=== PATIENT | female | born 1950 | race Caucasian/White ===

== ENCOUNTER 2017-01-12 13:15 | Inpatient (IN) ==
--- NOTE | 2017-01-12 13:35 | Emergency Department Note ---
Disposition Clinical Impression: Pleural effusion Disposition: Admitted As Inpatient General Adult HPI - General Chief complaint: ED Shortness of Breath/Dyspnea Stated complaint: JOSEPH, from [facility] Time Seen by Provider: 01/12/17 13:30 Source: patient, family Limitations: no limitations - History of Present Illness Pain Scale: 0 - Related Data Home Medications Medication Instructions Recorded Confirmed Albuterol Neb [Proventil Neb] 2.5 mg IH TID PRN 01/12/17 01/12/17 Atorvastatin Calcium [Lipitor] 80 mg PO HS 01/12/17 01/12/17 Cetirizine HCl [Zyrtec] 10 mg PO DAILY 01/12/17 01/12/17 Cholecalciferol (D-3) [Vitamin D] 2,000 unit PO DAILY 01/12/17 01/12/17 Gabapentin [Neurontin] 900 mg PO TID 01/12/17 01/12/17 Insulin ASPART [Novolog Flexpen] 7 - 10 unit SQ TIDWM 01/12/17 01/12/17 Insulin Glargine,Hum.rec.anlog 20 unit SQ HS 01/12/17 01/12/17 [Lantus Solostar] Metoprolol Tartrate [Lopressor] 50 mg PO BID 01/12/17 01/12/17 Omeprazole [PriLOSEC] 40 mg PO DAILY 01/12/17 01/12/17 Valsartan [Diovan] 80 mg PO DAILY 01/12/17 01/12/17 Allergies Allergy/AdvReac Type Severity Reaction Status Date / Time codeine Allergy Swelling Verified 01/12/17 15:33 of Lip/Tongue/Throat Sulfa (Sulfonamide Allergy Swelling Verified 01/12/17 11:42 Antibiotics) of Lip/Tongue/Throat metformin AdvReac Diarrhea Verified 01/12/17 11:42 Past Medical History - Past Medical History Medical history: Reports: diabetes, hyperlipidemia, hypertension, other - Social History Smoking Status: Never smoker Smokeless Tobacco Status: No Alcohol use: Reports: none Drug use: Reports: none Physical Exam - General Limitations: no limitations General appearance: alert Course Vital Signs Temperature 97.8 F 01/12/17 13:26 Pulse Rate 114 01/12/17 13:26 Respiratory Rate 20 01/12/17 13:26 Blood Pressure 158/82 01/12/17 13:26 O2 Sat by Pulse Oximetry 95 01/12/17 13:26 Temperature 98.6 F 01/12/17 16:32 Pulse Rate 94 01/12/17 16:32 Respiratory Rate 16 01/12/17 16:32 Blood Pressure 146/76 01/12/17 16:32 O2 Sat by Pulse Oximetry 95 01/12/17 16:32 Medical Decision Making - Lab Data Result diagrams: 01/12/17 13:47 01/12/17 13:47 Lab Results 01/12/17 01/12/17 01/12/17 Range/Units 13:47 13:47 13:47 WBC 4.3 (4.3-11.1) K/mcL RBC 4.73 (3.82-4.97) M/mcL Hgb 13.2 (11.5-15.4) g/dL Hct 40.3 (35.3-44.9) % MCV 85.2 (83.0-100.0) fL MCH 27.9 L (28.0-33.3) pg MCHC 32.8 (31.6-35.5) g/dL RDW 15.3 H (11.5-14.5) % Plt Count 54 L (140-400) K/mcL MPV 9.7 (9.4-12.4) fL Immature Gran % 0.0 (0-4) % Seg Neutrophils % 60.4 % Lymphocytes % 23.1 % Monocytes % 8.0 % Eosinophils % 7.8 % Basophils % 0.7 % Neutrophils # 2.6 (1.6-8.9) K/mcL Lymphocytes # 1.0 (0.6-4.6) K/mcL Monocytes # 0.3 (0.0-1.3) K/mcL Eosinophils # 0.3 (0.0-0.6) K/mcL Basophils # 0.0 (0.0-0.2) K/mcL Platelet Estimate Decreased L (Normal) Immature Plt Fraction 5.4 (1.1-6.1) % PT 15.1 H (9.4-12.1) Seconds INR 1.4 APTT 34.2 (26.0-36.0) Seconds Sodium 135 L (136-145) mEq/L Potassium 3.6 (3.5-4.5) mEq/L Chloride 105 (98-109) mEq/L Carbon Dioxide 20 (19-29) mEq/L BUN 7 (7-20) mg/dL Creatinine 0.92 (0.57-1.11) mg/dL Est GFR ( Amer) > 60 (> 60) Est GFR (Non-Af Amer) > 60 (> 60) BUN/Creatinine Ratio 8 (6-26) Glucose 161 H (70-99) mg/dL POC Glucose (58-89) Calculated Osmolality 281 (280-300) Calcium 9.1 (8.6-10.8) mg/dL Total Bilirubin 1.7 H (0.2-1.2) mg/dL AST 35 H (5-34) Units/L ALT 18 (0-55) Units/L Alkaline Phosphatase 78 (38-126) Units/L Troponin I (0-0.03) ng/mL Serum Total Protein 7.3 (6.0-8.3) g/dL Albumin 3.8 (3.5-5.0) g/dL Globulin 3.5 (2.4-3.5) g/dL Albumin/Globulin Ratio 1.1 (1.1-2.2) 01/12/17 01/12/17 Range/Units 13:47 16:38 WBC (4.3-11.1) K/mcL RBC (3.82-4.97) M/mcL Hgb (11.5-15.4) g/dL Hct (35.3-44.9) % MCV (83.0-100.0) fL MCH (28.0-33.3) pg MCHC (31.6-35.5) g/dL RDW (11.5-14.5) % Plt Count (140-400) K/mcL MPV (9.4-12.4) fL Immature Gran % (0-4) % Seg Neutrophils % % Lymphocytes % % Monocytes % % Eosinophils % % Basophils % % Neutrophils # (1.6-8.9) K/mcL Lymphocytes # (0.6-4.6) K/mcL Monocytes # (0.0-1.3) K/mcL Eosinophils # (0.0-0.6) K/mcL Basophils # (0.0-0.2) K/mcL Platelet Estimate (Normal) Immature Plt Fraction (1.1-6.1) % PT (9.4-12.1) Seconds INR APTT (26.0-36.0) Seconds Sodium (136-145) mEq/L Potassium (3.5-4.5) mEq/L Chloride (98-109) mEq/L Carbon Dioxide (19-29) mEq/L BUN (7-20) mg/dL Creatinine (0.57-1.11) mg/dL Est GFR ( Amer) (> 60) Est GFR (Non-Af Amer) (> 60) BUN/Creatinine Ratio (6-26) Glucose (70-99) mg/dL POC Glucose 127 H (58-89) Calculated Osmolality (280-300) Calcium (8.6-10.8) mg/dL Total Bilirubin (0.2-1.2) mg/dL AST (5-34) Units/L ALT (0-55) Units/L Alkaline Phosphatase (38-126) Units/L Troponin I 0.01 (0-0.03) ng/mL Serum Total Protein (6.0-8.3) g/dL Albumin (3.5-5.0) g/dL Globulin (2.4-3.5) g/dL Albumin/Globulin Ratio (1.1-2.2) Attestation Statement - Attestation Attestation: I examined this patient and my medical decision-making was reviewed with the [employer]/PA/Advanced Practice Nurse/Resident Physician. I agree with the documented findings, disposition and treatment plan as described except to the extent set forth below. [id number] time provided Patient transferred from the urgent care for assessment of dyspnea and right- sided pleural effusion. Patient underwent an open procedure to relieve and drain a loculated left-sided pleural effusion in 2013. The patient is dyspneic on exam. I did review the imaging of her chest which was ordered earlier at the urgent care.
--- NOTE | 2017-01-12 13:43 | Emergency Department Note ---
Disposition Clinical Impression: Pleural effusion Disposition: Admitted As Inpatient General Adult HPI - General Chief complaint: ED Shortness of Breath/Dyspnea Stated complaint: JOSEPH, from UC Time Seen by Provider: 01/12/17 13:30 Source: patient, family Limitations: no limitations Nursing Notes Reviewed: Yes Vital Signs Reviewed: Yes - History of Present Illness HPI Narrative: Mrs. Quigley, a 66yo female, presents from urgent care by POV with CC: cough, dyspnea. Onset 5 days ago. Dyspnea worse with laying prone or on her side. This was predisposed by bronchitis in Aug and Oct; received abx and steroids each time. Her symptoms have occurred once previously also preceeded with bronchitis with subsequent pleural effusion on the left requiring open drainage and "scraping." PMH: HTN, HLD, DM insulin dependent. 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 Admits: Cough, dyspnea Eyes: Fever, chills, chest pain, abdominal pain, nausea, vomiting, changes in bowel or bladder. Pain Scale: 0 - Related Data Allergies Allergy/AdvReac Type Severity Reaction Status Date / Time codeine Allergy Rash Verified 01/12/17 11:42 Sulfa (Sulfonamide Allergy Swelling Verified 01/12/17 11:42 Antibiotics) of Lip/Tongue/Throat metformin AdvReac Diarrhea Verified 01/12/17 11:42 All systems ED: reviewed and negative except as stated. (as per HPI) Past Medical History - Past Medical History Medical history: Reports: diabetes, hyperlipidemia, hypertension, other - Social History Smoking Status: Never smoker Smokeless Tobacco Status: No Alcohol use: Reports: none Drug use: Reports: none Physical Exam General: Patient is alert, oriented, and in no acute distress. HEENT: Mild left-sided nasolabial flattening which is chronic. Head is normocephalic and atraumatic. The midline. Cardiovascular: Heart regular rate and rhythm without clicks, rubs, gallops, or murmurs. No JVD. PMI nondisplaced. Respiratory: Symmetric chest rise with poor respiratory effort. Diminished breath sounds in the right upper lobe with absent breath sounds in the right lower lobe. Abdomen: Obese. Bowel sounds present normoactive x-4 quadrants. Abdomen is soft, nondistended, and nontender. No organomegaly noted. Musculoskeletal: Permanent disability patients left upper extremity with no strength in her left shoulder and permanent flexion of her left elbow. Psych: Patient's affect is appropriate for situation. - General Limitations: no limitations General appearance: alert Course Course Narrative: Chest x-ray from urgent care reviewed showing right sided pleural effusion consuming approximately 50% of the right thorax. Will CT chest and reevaluate. Patient remained stable and comfortable with oxygenation in the mid 90s on room air. Vital Signs Temperature 97.8 F 01/12/17 13:26 Pulse Rate 114 01/12/17 13:26 Respiratory Rate 20 01/12/17 13:26 Blood Pressure 158/82 01/12/17 13:26 O2 Sat by Pulse Oximetry 95 01/12/17 13:26 Temperature 97.8 F 01/12/17 13:26 Pulse Rate 112 01/12/17 14:00 Respiratory Rate 16 01/12/17 14:00 Blood Pressure 167/98 01/12/17 14:00 O2 Sat by Pulse Oximetry 95 01/12/17 14:00 Oxygen Delivery Oxygen Delivery Room Air Medical Decision Making - Lab Data Result diagrams: 01/12/17 13:47 01/12/17 13:47 Lab Results 01/12/17 01/12/17 01/12/17 Range/Units 13:47 13:47 13:47 WBC 4.3 (4.3-11.1) K/mcL RBC 4.73 (3.82-4.97) M/mcL Hgb 13.2 (11.5-15.4) g/dL Hct 40.3 (35.3-44.9) % MCV 85.2 (83.0-100.0) fL MCH 27.9 L (28.0-33.3) pg MCHC 32.8 (31.6-35.5) g/dL RDW 15.3 H (11.5-14.5) % Plt Count 54 L (140-400) K/mcL MPV 9.7 (9.4-12.4) fL Immature Gran % 0.0 (0-4) % Seg Neutrophils % 60.4 % Lymphocytes % 23.1 % Monocytes % 8.0 % Eosinophils % 7.8 % Basophils % 0.7 % Neutrophils # 2.6 (1.6-8.9) K/mcL Lymphocytes # 1.0 (0.6-4.6) K/mcL Monocytes # 0.3 (0.0-1.3) K/mcL Eosinophils # 0.3 (0.0-0.6) K/mcL Basophils # 0.0 (0.0-0.2) K/mcL Platelet Estimate Decreased L (Normal) Immature Plt Fraction 5.4 (1.1-6.1) % PT 15.1 H (9.4-12.1) Seconds INR 1.4 APTT 34.2 (26.0-36.0) Seconds Sodium 135 L (136-145) mEq/L Potassium 3.6 (3.5-4.5) mEq/L Chloride 105 (98-109) mEq/L Carbon Dioxide 20 (19-29) mEq/L BUN 7 (7-20) mg/dL Creatinine 0.92 (0.57-1.11) mg/dL Est GFR ( Amer) > 60 (> 60) Est GFR (Non-Af Amer) > 60 (> 60) BUN/Creatinine Ratio 8 (6-26) Glucose 161 H (70-99) mg/dL Calculated Osmolality 281 (280-300) Calcium 9.1 (8.6-10.8) mg/dL Total Bilirubin 1.7 H (0.2-1.2) mg/dL AST 35 H (5-34) Units/L ALT 18 (0-55) Units/L Alkaline Phosphatase 78 (38-126) Units/L Troponin I (0-0.03) ng/mL Serum Total Protein 7.3 (6.0-8.3) g/dL Albumin 3.8 (3.5-5.0) g/dL Globulin 3.5 (2.4-3.5) g/dL Albumin/Globulin Ratio 1.1 (1.1-2.2) 01/12/17 Range/Units 13:47 WBC (4.3-11.1) K/mcL RBC (3.82-4.97) M/mcL Hgb (11.5-15.4) g/dL Hct (35.3-44.9) % MCV (83.0-100.0) fL MCH (28.0-33.3) pg MCHC (31.6-35.5) g/dL RDW (11.5-14.5) % Plt Count (140-400) K/mcL MPV (9.4-12.4) fL Immature Gran % (0-4) % Seg Neutrophils % % Lymphocytes % % Monocytes % % Eosinophils % % Basophils % % Neutrophils # (1.6-8.9) K/mcL Lymphocytes # (0.6-4.6) K/mcL Monocytes # (0.0-1.3) K/mcL Eosinophils # (0.0-0.6) K/mcL Basophils # (0.0-0.2) K/mcL Platelet Estimate (Normal) Immature Plt Fraction (1.1-6.1) % PT (9.4-12.1) Seconds INR APTT (26.0-36.0) Seconds Sodium (136-145) mEq/L Potassium (3.5-4.5) mEq/L Chloride (98-109) mEq/L Carbon Dioxide (19-29) mEq/L BUN (7-20) mg/dL Creatinine (0.57-1.11) mg/dL Est GFR ( Amer) (> 60) Est GFR (Non-Af Amer) (> 60) BUN/Creatinine Ratio (6-26) Glucose (70-99) mg/dL Calculated Osmolality (280-300) Calcium (8.6-10.8) mg/dL Total Bilirubin (0.2-1.2) mg/dL AST (5-34) Units/L ALT (0-55) Units/L Alkaline Phosphatase (38-126) Units/L Troponin I 0.01 (0-0.03) ng/mL Serum Total Protein (6.0-8.3) g/dL Albumin (3.5-5.0) g/dL Globulin (2.4-3.5) g/dL Albumin/Globulin Ratio (1.1-2.2) - EKG Data EKG #1 EKG attestation: Yes I reviewed and interpreted this EKG. EKG results narrative: EKG dated 01/12/17 shows sinus tachycardia with a rate of 120. Normal intervals. Normal axis. His EKG is concerning for S Pham 1, Q-wave in lead 3, T-wave inversion in lead 3. Acute ST-T changes. Compared to previous dated 01/15/2015 is also showing S-wave in lead 1, Q-wave in lead 3, and T-wave in lead 3. No acute ischemic changes or comparison.
[2017-01-12 13:55] LABS: Basophils % 0.7 %; Eosinophils # 0.3 K/mcL (0.0-0.6); Eosinophils % 7.8 %; Hematocrit 40.3 % (35.3-44.9); Hemoglobin 13.2 g/dL (11.5-15.4); Immature Platelets 5.4 % (1.1-6.1); Lymphocytes % 23.1 %; Mean Corpuscular HGB Conc 32.8 g/dL (31.6-35.5); Mean Corpuscular Hemoglobin 27.9 pg (28.0-33.3); Mean Corpuscular Volume 85.2 fL (83.0-100.0); Mean Platelet Volume 9.7 fL (9.4-12.4); Monocytes # 0.3 K/mcL (0.0-1.3); Neutrophils # 2.6 K/mcL (1.6-8.9); Platelet Count 54 K/mcL (140-400); Red Blood Count 4.73 M/mcL (3.82-4.97); Red Cell Distribution Width 15.3 % (11.5-14.5); Segmented Neutrophils % 60.4 %
[2017-01-12 14:01] LABS: INR 1.4; Prothrombin Time 15.1 Seconds (9.4-12.1)
[2017-01-12 14:04] LABS: Activated Partial Thrombo Time 34.2 Seconds (26.0-36.0)
[2017-01-12 14:08] LABS: Alanine Aminotransferase 18 Units/L (0-55); Albumin 3.8 g/dL (3.5-5.0); Albumin/Globulin Ratio 1.1 (1.1-2.2); Alkaline Phosphatase 78 Units/L (38-126); Aspartate Amino Transferase 35 Units/L (5-34); BUN/Creatinine Ratio 8 (6-26); Bilirubin,Total 1.7 mg/dL (0.2-1.2); Blood Urea Nitrogen 7 mg/dL (7-20); Calcium 9.1 mg/dL (8.6-10.8); Carbon Dioxide 20 mEq/L (19-29); Chloride 105 mEq/L (98-109); Globulin 3.5 g/dL (2.4-3.5); Glucose 161 mg/dL (70-99); Osmolality,Calculated 281 (280-300); Potassium 3.6 mEq/L (3.5-4.5); Sodium 135 mEq/L (136-145); Total Protein 7.3 g/dL (6.0-8.3); eGFR For African Americans > 60 (> 60); eGFR For Non-African Americans > 60 (> 60)
[2017-01-12 14:18] LABS: Platelet Estimate Decreased (Normal)
[2017-01-12] MEDS ORDERED: Benzonatate 100 MG CAPSULE PO STA (14:56)
[2017-01-12] MEDS ORDERED: Ibuprofen 400 MG TABLET PO PRN (15:52)
[2017-01-12] MEDS ORDERED: Naloxone 0.4 MG/ML INJ IVP PRN (15:52)
[2017-01-12] MEDS ORDERED: Albuterol 2.5 MG/3 ML NEBULIZER IH PRN (15:58)
[2017-01-12] MEDS ORDERED: *HR* Dextrose 50 % in Water (Syg) 50 ML SYRINGE IVP PRN (16:01)
[2017-01-12] MEDS ORDERED: D5% in Water 1,000 ML IV PRN (16:01)
[2017-01-12] MEDS ORDERED: Dextrose Gel 15 GM PO PRN ×2 (16:01)
--- NOTE | 2017-01-12 16:09 | Internal Med History&Physical ---
<Christiane Dejesus M - Last Filed: 01/12/17 21:31> Date of Encounter: 01/12/17 Time of Encounter: 16:07 Assessment and Plan (1) Pleural effusion, right Current visit: Yes Status: Acute Patient presented with increasing shortness of breath and cough over the last week. She is satting 95% on room air. Chest x-ray showed new moderate to large right pleural effusion with right basilar volume loss She is satting 95% on room air at this time. CTA shows large right pleural effusion, small loculated left pleural effusion, mild adjacent atelectasis, mild bilateral ground-glass opacities likely represent atelectasis. titrate Oxygen to maintain oxygen saturation > 2% NPO after midnight for planned thoracentesis. Consult pulmonology for pleural effusions and for diagnostic thoracentesis and drainage. Spoke with Dr. Zhu, he requests we call Dr. Anthony in the morning. She has had similar episode in the past, in January 2015 she developed a left- sided pleural effusion requiring a left thoracotomy with decortication. CT Chest 01/12/15 showed a complex left pleural effusion with some areas of loculation with left basilar air-spae disease with consolidation. It also showed a mass-like focus of density along the right hemidiaphragm in the right lower lobe, measuring approximately 2.4 x 2.1 cm, recommended followup imaging. (2) Cough Current visit: Yes Status: Acute Patient is reporting worsening cough over the last week, along with shortness of breath. Cough is productive of clear sputum She was unable to sleep last night due to her coughing. Tessalon pearls PRN for cough. Albuterol nebulizer TID PRN (3) Type 2 diabetes mellitus Current visit: Yes Status: Acute Hbg A1c of 6.5% on 08/14/16, indicating she is well controlled. diabetic diet (NPO after midnight) check blood sugars ACHS and Q6 hours when NPO Home basal dose of insulin is 20u HS. Give 10u tonight as she will be NPO after midnight. Sliding scale insulin ACHS and Q6 hours when NPO hypoglycemic protocol. Patient will need to be switched by to her normal basal dose of 20 units once she is taking PO again. Qualifiers: Diabetes mellitus complication status: without complication Diabetes mellitus half-way insulin use: with half-way use Qualified Code(s): E11.9 - Type 2 diabetes mellitus without complications; Z79.4 - director long term care (current) use of insulin (4) Hypertension Current visit: Yes Status: Acute Continue home dose of metoprolol and valsartan. Qualifiers: Hypertension type: essential hypertension Qualified Code(s): I10 - Essential (primary) hypertension (5) Thrombocytopenia Current visit: Yes Status: Acute Plt of 54. She appears to have chronic thrombocytopenia, likely due to her PEOPLES cirrhosis, however, this is below her baseline. (6) DVT prophylaxis Current visit: Yes Status: Acute ambulate with assistance anti-embolic stockings pharmacologic prophylaxis is contraindicated in patient with thrombocytopenia, plt of 54. Internal Medicine - H&P: HPI Chief complaint: shortness of breath Admitted From: Emergency Dept Plans for Post Hospital Care: Home History of present illness: Ms. 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 She reports she had an episode of bronchitis in August and in October being treated with steroids and antibiotics with each episode. She reports she has had a cough since her episodes of bronchitis in the fall however over the last week she has noticed increasing shortness of breath on exertion and increasing cough. She went to the urgent care today because she could not sleep last night due to the coughing and shortness of breath. She also reports a pain in her right upper quadrant, under her ribs. This pain has been going on for several months; it comes and goes she describes it as sharp at times, and dull at others. She denies any recent fever, chills, sweats, body aches. She denies any nausea, vomiting, diarrhea. The urgent care obtained a chest x-ray which showed new moderate to large right pleural effusion with right basilar volume loss, and she was sent to the emergency department. Dilation in the emergency department included a CTA which redemonstrated the right pleural effusion... She is satting 95% on room air, she is tachycardic with heart rate in the 110s to 1 teens. Troponin negative at 0.01. On exam, patient is alert and oriented, in no acute distress. Left lung has mild expiratory wheeze, no lung sounds on the right base. Heart has regular rate and rhythm heart rate in the high 90s. She does have tenderness in the right upper quadrant on palpation. Past Med Surg Social Fam HX - Past Medical History Medical history: arthritis, diabetes, hyperlipidemia, hypertension, liver disease (PEOPLES cirrhosis), other (history of polio at age 4 with residual left sided weakness) - Past Surgical History Surgical History: hysterectomy, knee replacement, other (sinus surgery x 2, left thoracotomy with decortication) - Social History Smoking Status: Never smoker Smokeless Tobacco Status: No Alcohol use: none Drug use: none - Family History Sister Living Status: Hx Family GI Disorders: Yes (PEOPLES cirrhosis) Internal Medicine - H&P: Meds Albuterol Neb [Proventil Neb] 2.5 mg IH TID PRN 01/12/17 [History] Atorvastatin Calcium [Lipitor] 80 mg PO HS 01/12/17 [History] Cetirizine HCl [Zyrtec] 10 mg PO DAILY 01/12/17 [History] Cholecalciferol (D-3) [Vitamin D] 2,000 unit PO DAILY 01/12/17 [History] Gabapentin [Neurontin] 900 mg PO TID 01/12/17 [History] Insulin ASPART [Novolog Flexpen] 7 - 10 unit SQ TIDWM 01/12/17 [History] Insulin Glargine,Hum.rec.anlog [Lantus Solostar] 20 unit SQ HS 01/12/17 [History ] Metoprolol Tartrate [Lopressor] 50 mg PO BID 01/12/17 [History] Omeprazole [PriLOSEC] 40 mg PO DAILY 01/12/17 [History] Valsartan [Diovan] 80 mg PO DAILY 01/12/17 [History] Allergies codeine Allergy (Verified 01/12/17 15:33) Swelling of Lip/Tongue/Throat Sulfa (Sulfonamide Antibiotics) Allergy (Verified 01/12/17 11:42) Swelling of Lip/Tongue/Throat metformin Adverse Reaction (Verified 01/12/17 11:42) Diarrhea All Systems PM: A 10-system review of systems was performed and is negative for pertinent findings except as documented above in the HPI. - Constitutional Constitutional: no chills, no fever(s), no night sweats - EENT Eyes: no change in vision, no discharge, no pain, no photophobia Ears: no ear discharge, no ear pain, no tinnitus Nose, mouth and throat: no dysphagia, no nasal discharge, no neck pain, no sore throat - Cardiovascular Cardiovascular ROS IM: dyspnea, dyspnea on exertion, no chest pain, no diaphoresis, no lightheadedness, no palpitations, no syncope - Respiratory Respiratory: cough, dyspnea on exertion, no dyspnea, no wheezing, no excessive phlegm production - Gastrointestinal Gastrointestinal: abdominal pain (RUQ), no diarrhea, no hematemesis, no hematochezia, no melena, no nausea, no vomiting - Genitourinary Genitourinary: no change in urinary stream, no dysuria, no flank pain, no hematuria - Musculoskeletal Musculoskeletal ROS IM: deformity (left shoulder and elbow are immobilized), no numbness, no tingling - Integumentary Integumentary IM: no rash, no unusual bruising - Neurological Neurological ROS: focal weakness (chronic left sided), no confusion, no convulsions, no numbness, no tingling, no tremor(s) - Hematologic/Lymphatic Hematologic/Lymphatic: no easy bruising - Constitutional Vitals: Temp Pulse Resp BP Pulse Ox 97.8 F 97 16 161/97 95 01/12/17 13:26 01/12/17 15:00 01/12/17 15:30 01/12/17 15:30 01/12/17 15:00 General appearance: Present: A&O X 3, morbidly obese, no acute distress - Head Head exam: Present: atraumatic, normocephalic - Eye Eye exam: Present: PERRL, conjuntiva pink, sclera anicteric Pupils: Present: PERRL - Neck Neck exam general surgery: Present: supple, trachea midline. Absent: lymphadenopathy - Respiratory Respiratory exam: Present: decreased breath sounds (right base absent breath sounds), wheezes (left mild expiratory wheeze). Absent: accessory muscle use, rales, rhonchi - Cardiovascular Cardiovascular exam: Present: RRR, +S1, +S2. Absent: diastolic murmur, gallop, rubs, systolic murmur - GI/Abdominal GI/Abdominal exam: Present: normal bowel sounds, soft, tenderness (right upper quadrant), no peritoneal signs. Absent: distended - Extremities Exam Extremities exam: Present: warm, radial pulses palpable and symetrical. Absent : calf tenderness, cyanotic, pedal edema - Neurological Exam Neurological exam: Present: CN II-XII intact, oriented X3, no focal deficits. Absent: facial droop, speech deficit - Skin Skin exam: Present: dry, intact Internal Med - H&P Results - Labs CBC & Chem 7: 01/12/17 13:47 01/12/17 13:47 Labs: All Lab Results (24 Hours) 01/12/17 01/12/17 01/12/17 Range/Units 13:47 13:47 13:47 WBC 4.3 (4.3-11.1) K/mcL RBC 4.73 (3.82-4.97) M/mcL Hgb 13.2 (11.5-15.4) g/dL Hct 40.3 (35.3-44.9) % MCV 85.2 (83.0-100.0) fL MCH 27.9 L (28.0-33.3) pg MCHC 32.8 (31.6-35.5) g/dL RDW 15.3 H (11.5-14.5) % Plt Count 54 L (140-400) K/mcL MPV 9.7 (9.4-12.4) fL Immature Gran % 0.0 (0-4) % Seg Neutrophils % 60.4 % Lymphocytes % 23.1 % Monocytes % 8.0 % Eosinophils % 7.8 % Basophils % 0.7 % Neutrophils # 2.6 (1.6-8.9) K/mcL Lymphocytes # 1.0 (0.6-4.6) K/mcL Monocytes # 0.3 (0.0-1.3) K/mcL Eosinophils # 0.3 (0.0-0.6) K/mcL Basophils # 0.0 (0.0-0.2) K/mcL Platelet Estimate Decreased L (Normal) Immature Plt Fraction 5.4 (1.1-6.1) % PT 15.1 H (9.4-12.1) Seconds INR 1.4 APTT 34.2 (26.0-36.0) Seconds Sodium 135 L (136-145) mEq/L Potassium 3.6 (3.5-4.5) mEq/L Chloride 105 (98-109) mEq/L Carbon Dioxide 20 (19-29) mEq/L BUN 7 (7-20) mg/dL Creatinine 0.92 (0.57-1.11) mg/dL Est GFR ( Amer) > 60 (> 60) Est GFR (Non-Af Amer) > 60 (> 60) BUN/Creatinine Ratio 8 (6-26) Glucose 161 H (70-99) mg/dL Calculated Osmolality 281 (280-300) Calcium 9.1 (8.6-10.8) mg/dL Total Bilirubin 1.7 H (0.2-1.2) mg/dL AST 35 H (5-34) Units/L ALT 18 (0-55) Units/L Alkaline Phosphatase 78 (38-126) Units/L Troponin I (0-0.03) ng/mL Serum Total Protein 7.3 (6.0-8.3) g/dL Albumin 3.8 (3.5-5.0) g/dL Globulin 3.5 (2.4-3.5) g/dL Albumin/Globulin Ratio 1.1 (1.1-2.2) 01/12/17 Range/Units 13:47 WBC (4.3-11.1) K/mcL RBC (3.82-4.97) M/mcL Hgb (11.5-15.4) g/dL Hct (35.3-44.9) % MCV (83.0-100.0) fL MCH (28.0-33.3) pg MCHC (31.6-35.5) g/dL RDW (11.5-14.5) % Plt Count (140-400) K/mcL MPV (9.4-12.4) fL Immature Gran % (0-4) % Seg Neutrophils % % Lymphocytes % % Monocytes % % Eosinophils % % Basophils % % Neutrophils # (1.6-8.9) K/mcL Lymphocytes # (0.6-4.6) K/mcL Monocytes # (0.0-1.3) K/mcL Eosinophils # (0.0-0.6) K/mcL Basophils # (0.0-0.2) K/mcL Platelet Estimate (Normal) Immature Plt Fraction (1.1-6.1) % PT (9.4-12.1) Seconds INR APTT (26.0-36.0) Seconds Sodium (136-145) mEq/L Potassium (3.5-4.5) mEq/L Chloride (98-109) mEq/L Carbon Dioxide (19-29) mEq/L BUN (7-20) mg/dL Creatinine (0.57-1.11) mg/dL Est GFR ( Amer) (> 60) Est GFR (Non-Af Amer) (> 60) BUN/Creatinine Ratio (6-26) Glucose (70-99) mg/dL Calculated Osmolality (280-300) Calcium (8.6-10.8) mg/dL Total Bilirubin (0.2-1.2) mg/dL AST (5-34) Units/L ALT (0-55) Units/L Alkaline Phosphatase (38-126) Units/L Troponin I 0.01 (0-0.03) ng/mL Serum Total Protein (6.0-8.3) g/dL Albumin (3.5-5.0) g/dL Globulin (2.4-3.5) g/dL Albumin/Globulin Ratio (1.1-2.2) <Bert Giordano - Last Filed: 01/13/17 09:39> Date of Encounter: 01/13/17 Internal Medicine - H&P: HPI History of present illness: Ms. Quigley is a 66 year old female All Systems PM: A 10-system review of systems was performed and is negative for pertinent findings except as documented above in the HPI. - Constitutional Vitals: Temp Pulse Resp BP Pulse Ox 98 F 80 16 111/56 95 01/13/17 07:14 01/13/17 07:14 01/13/17 07:14 01/13/17 07:14 01/13/17 08:42 Internal Med - H&P Results - Labs CBC & Chem 7: 01/13/17 09:09 01/13/17 06:26 Labs: Short CBC 01/13/17 Range/Units 09:09 WBC 2.4 L (4.3-11.1) K/mcL Hgb 11.7 D (11.5-15.4) g/dL Hct 34.8 L (35.3-44.9) % Plt Count 46 L (140-400) K/mcL Neutrophils # 1.2 L (1.6-8.9) K/mcL [facility] 01/13/17 06:26 Sodium 139 Potassium 3.6 Chloride 108 Carbon Dioxide 24 BUN 6 L Creatinine 0.75 Glucose 130 H Calcium 8.7 - Attending Attestation I examined this patient and my medical decision-making was reviewed with the Advanced Practice Provider. I agree with the documented findings, disposition and treatment plan as described except to the extent set forth below. On exam the patient has diminished breath sounds on the right lower lung field. She appears in no acute distress. Heart is regular rhythm, S1 and S2. I have reviewed the x-rays and CT of the chest which shows a large right pleural effusion. Have discussed the case with emergency department physician. We will place a consult to pulmonary for diagnostic and therapeutic thoracentesis.
[2017-01-12] MEDS ORDERED: Insulin LISPRO 300 UNITS/3 ML VIAL SQ SCH ×2 (16:30→21:00)
[2017-01-12] MEDS ORDERED: Benzonatate 100 MG CAPSULE PO PRN (18:04)
[2017-01-12] MEDS ORDERED: Insulin DETEMIR 100 UNIT/ML X5UNITS SQ SCH (21:00)
[2017-01-12] MEDS: Gabapentin 300 MG CAPSULE PO SCH (22:19)
[2017-01-12] MEDS: Insulin DETEMIR 100 UNIT/ML X5UNITS SQ SCH (22:22)
[2017-01-13] MEDS: Insulin LISPRO 300 UNITS/3 ML VIAL SQ SCH ×4 (01:56→17:29)
[2017-01-13 07:17] LABS: BUN/Creatinine Ratio 8 (6-26); Blood Urea Nitrogen 6 mg/dL (7-20); Calcium 8.7 mg/dL (8.6-10.8); Carbon Dioxide 24 mEq/L (19-29); Chloride 108 mEq/L (98-109); Glucose 130 mg/dL (70-99); Osmolality,Calculated 287 (280-300); Potassium 3.6 mEq/L (3.5-4.5); Sodium 139 mEq/L (136-145); eGFR For African Americans > 60 (> 60); eGFR For Non-African Americans > 60 (> 60)
[2017-01-13] MEDS: Loratadine 10 MG TABLET PO SCH (07:54)
[2017-01-13] MEDS: Valsartan 80 MG TABLET PO SCH (07:54)
[2017-01-13] MEDS: Cholecalciferol (D-3) 1,000 UNIT TABLET PO SCH (07:55)
[2017-01-13] MEDS: Gabapentin 300 MG CAPSULE PO SCH ×3 (07:55→21:29)
[2017-01-13 09:16] LABS: Basophils % 1.2 %; Eosinophils # 0.3 K/mcL (0.0-0.6); Eosinophils % 10.7 %; Hematocrit 34.8 % (35.3-44.9); Hemoglobin 11.7 g/dL (11.5-15.4); Lymphocytes # 0.6 K/mcL (0.6-4.6); Mean Corpuscular HGB Conc 33.6 g/dL (31.6-35.5); Mean Corpuscular Hemoglobin 28.5 pg (28.0-33.3); Mean Corpuscular Volume 84.9 fL (83.0-100.0); Mean Platelet Volume 10.5 fL (9.4-12.4); Monocytes # 0.4 K/mcL (0.0-1.3); Monocytes % 14.9 %; Neutrophils # 1.2 K/mcL (1.6-8.9); Red Cell Distribution Width 15.5 % (11.5-14.5); Segmented Neutrophils % 49.2 %
[2017-01-13 09:17] LABS: Platelet Count 46 K/mcL (140-400)
--- NOTE | 2017-01-13 10:38 | Internal Med Progress Note ---
Date of Encounter: 01/13/17 Time of Encounter: 10:00 - Assessment and plan (1) Pleural effusion, right Current Visit: Yes Status: Acute Assessment and plan: Recurrent Most likely from cirrhosis, cannot rule out infection/rheumatologic/malignant causes, no ECHO on board to assess CHF, will order For Pulmonology review for diagnostic and therapeutic thoracentensis NPO meanwhile for possible procedure (2) Diabetes mellitus Current Visit: Yes Status: Chronic Assessment and plan: A1C 6.5 % 08/2016 FS acceptable Continue to monitor Diabetic diet when able to take po Continue insulin Qualifiers: Diabetes mellitus type: type 2 Diabetes mellitus complication status: without complication Diabetes mellitus manager shop insulin use: with senior living use Qualified Code(s): E11.9 - Type 2 diabetes mellitus without complications ; Z79.4 - custodial (current) use of insulin (3) 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 Current Visit: Yes Status: Chronic Assessment and plan: Chronic, with portal HTN and Splenomegaly by CT scan Patient not following with hydrotreater operator She is unsure if she has had an EGD or not LFTs WNL No coagulopathy Continue to monitor closely (4) HLD (hyperlipidemia) Current Visit: Yes Status: Chronic Assessment and plan: Continue home meds Qualifiers: Hyperlipidemia type: unspecified Qualified Code(s): E78.5 - Hyperlipidemia , unspecified (5) Cough Current Visit: Yes Status: Chronic Assessment and plan: Possibly from bronchitis Patient's Chest CT does show mild bilateral ground-glass opacities which likely represent atelectasis although infectious or inflammatory etiologies not excluded Will start the patient on po levaquin Patient with chronic immobility from polio Incentive spirometry (6) DVT prophylaxis Current Visit: Yes Status: Acute Assessment and plan: Heparin contraindicated due to PLT count of 46 ICDs (7) Hypertension Current Visit: Yes Status: Chronic Assessment and plan: Controlled, continue meds Qualifiers: Hypertension type: essential hypertension Qualified Code(s): I10 - Essential (primary) hypertension (8) Thrombocytopenia Current Visit: Yes Status: Chronic Assessment and plan: Chronic No evidence of bleeding Possibly from Liver disease Continue to monitor - Subjective Interval history: 66 Y/O F with PMH of ROSS Cirrhosis with Portal HTN, Splenomegaly, DM complicated by neuropathy, HLD, Chronic thrombocytopenia She is admitted for management of R large pleural effusion She is seen at bedside, has no new complains She reports dry cough chronically, no change in sputum, no fever or chills She does not routinely follow up with a hydrotreater operator for her liver disease She is pending review by Pulmonology for thoracentensis - Constitutional Vitals: Temp Pulse Resp BP Pulse Ox 98 F 80 16 111/56 95 01/13/17 07:14 01/13/17 07:14 01/13/17 07:14 01/13/17 07:14 01/13/17 08:42 General appearance: Present: A&O X 3, morbidly obese, no acute distress - Head Head exam: Present: atraumatic, normocephalic - Eye Eye exam: Present: PERRL, conjuntiva pink, sclera anicteric Pupils: Present: PERRL - Neck Neck exam general surgery: Present: supple, trachea midline. Absent: lymphadenopathy - Respiratory Respiratory exam: Present: CTAB. Absent: accessory muscle use, rales, rhonchi, wheezes - Cardiovascular Cardiovascular exam: Present: RRR, +S1, +S2. Absent: diastolic murmur, gallop, rubs, systolic murmur - GI/Abdominal GI/Abdominal exam: Present: normal bowel sounds, soft, no peritoneal signs. Absent: distended, tenderness - Extremities Exam Extremities exam: Present: warm, radial pulses palpable and symetrical. Absent : calf tenderness, cyanotic, pedal edema - Neurological Exam Neurological exam: Present: CN II-XII intact, oriented X3, no focal deficits. Absent: pronater drift, facial droop, speech deficit - Skin Skin exam: Present: dry, intact Internal Medicine: Result - Labs CBC & Chem 7: 01/13/17 09:09 01/13/17 06:26 Labs: Short CBC 01/13/17 Range/Units 09:09 WBC 2.4 L (4.3-11.1) K/mcL Hgb 11.7 D (11.5-15.4) g/dL Hct 34.8 L (35.3-44.9) % Plt Count 46 L (140-400) K/mcL Neutrophils # 1.2 L (1.6-8.9) K/mcL BMP 01/13/17 06:26 Sodium 139 Potassium 3.6 Chloride 108 Carbon Dioxide 24 BUN 6 L Creatinine 0.75 Glucose 130 H Calcium 8.7 - ABG Interpretation ABG results: PT/INR, D-dimer PT 15.1 Seconds (9.4-12.1) H 01/12/17 13:47 Consult Discharge Plan - Plan Referrals: Ranjan Forbes DO [Primary Care Provider] - 01/21/17 11:30 am (Please follow up as schedule!!!)
--- NOTE | 2017-01-13 14:10 | Electrocardiograph Report ---
[place] [id number] Test Date: 2017-01-12 Pat Name: Beatriz Quigley Department: 105 Room: 2A Gender: F Grading Clerk: : 1950 Requested By: Enrrique Salmeron Order Number: [id number] Reading MD: Jeremías High DO Measurements Intervals [place] Rate: 120 P: 97 SC: 169 QRS: -4 QRSD: 85 T: -2 QT: 402 QTc: 473 Interpretive Statements Sinus tachycardia Nonspecific inferior ST-T changes Electronically Signed On 01-13-2017 14:08:20 EST by Jeremías High DO
[2017-01-13] MEDS: levoFLOXacin 500 MG TABLET PO SCH (16:17)
--- NOTE | 2017-01-13 17:22 | Pulmonology Consult Note ---
Date of Encounter: 01/13/17 Time of Encounter: 15:30 Assessment and Plan (1) Pleural effusion, right Current Visit: Yes Status: Acute Differential diagnosis is broad and I had extensive discussion with the patient and the family at the bedside regarding pleural effusion workup and difference between transudate of which I feel probably this is the case due to her history of liver disease and advised her to see a mandrel cleaner especially with thrombocytopenia which may indicate splenomegaly and explained to her old risk, alternatives, benefits of the diagnostic and therapeutic thoracentesis and she agreed to have it done. (2) Atelectasis of right lung Current Visit: Yes Status: Acute I suspect this is from pleural effusion and thoracentesis was incentive spirometry would be helpful (3) Cough Current Visit: Yes Status: Chronic This could be multifactorial, however atelectasis from the pleural effusion is a possibility. Outpatient workup may be helpful if cough continues. 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 Patient had history of pleural effusion about 2 years ago after multiple bronchitis and she had thoracotomy for that in the left side and she felt same history happen for the past few months she is having bronchitis and she presented with right-sided pleural effusion without abdominal discomfort. She was seening mandrel cleaner but not now. She also has noticed productive cough with white sputum but denies any hemoptysis and no chest pain. She does have dyspnea. She denies any nausea or vomiting and there is no hematemesis. She also noticed mild expiratory wheezes. She had just x-ray and then a CT chest with moderate size pleural effusion. Past Med Surg Social Fam HX - Past Medical History Medical history: arthritis, diabetes, hyperlipidemia, hypertension, liver disease (ROSS cirrhosis), other (history of polio at age 4 with residual left sided weakness) - Past Surgical History Surgical History: hysterectomy, knee replacement, other (sinus surgery x 2, left thoracotomy with decortication) - Social History Smoking Status: Never smoker Smokeless Tobacco Status: No Alcohol use: none Drug use: none - Family History Sister Living Status: Hx Family GI Disorders: Yes (ROSS cirrhosis) Medications and Allergies Albuterol Neb [Proventil Neb] 2.5 mg IH TID PRN 01/12/17 [History] Atorvastatin Calcium [Lipitor] 80 mg PO HS 01/12/17 [History] Cetirizine HCl [Zyrtec] 10 mg PO DAILY 01/12/17 [History] Cholecalciferol (D-3) [Vitamin D] 2,000 unit PO DAILY 01/12/17 [History] Gabapentin [Neurontin] 900 mg PO TID 01/12/17 [History] Insulin ASPART [Novolog Flexpen] 7 - 10 unit SQ TIDWM 01/12/17 [History] Insulin Glargine,Hum.rec.anlog [Lantus Solostar] 20 unit SQ HS 01/12/17 [History ] Metoprolol Tartrate [Lopressor] 50 mg PO BID 01/12/17 [History] Omeprazole [PriLOSEC] 40 mg PO DAILY 01/12/17 [History] Valsartan [Diovan] 80 mg PO DAILY 01/12/17 [History] Allergies codeine Allergy (Verified 01/12/17 15:33) Swelling of Lip/Tongue/Throat Sulfa (Sulfonamide Antibiotics) Allergy (Verified 01/12/17 11:42) Swelling of Lip/Tongue/Throat metformin Adverse Reaction (Verified 01/12/17 11:42) Diarrhea All Systems: A 10-system review of systems was performed and is negative for pertinent findings except as documented above in the HPI. Physical Examination Vital Signs: Please refer to nurses notes for the vital signs General appearance: no acute distress Eyes: nonicteric ENT: oropharynx moist Mallampati (class): 3 Neck: no lymphadenopathy, no JVD Effort: normal Inspection: other (Scar in the left side of the chest from previous surgery) Auscultation: left: clear, right: diminished breath sounds Percussion: right: dull Cardiovascular: regular rate and rhythm Gastrointestinal: normoactive bowel sounds, soft, non-tender Integumentary: other (Ecchymosis and the site of the IV access.) Extremities: no cyanosis, edema pupils equal and round, other (Weakness in the left side from previous polio) mood appropriate Results - Laboratory Findings CBC and BMP: 01/13/17 09:09 01/13/17 06:26 PT/INR, D-dimer PT 15.1 Seconds (9.4-12.1) H 01/12/17 13:47 Abnormal lab findings: Abnormal lab results WBC 2.4 K/mcL (4.3-11.1) L 01/13/17 09:09 Hct 34.8 % (35.3-44.9) L 01/13/17 09:09 RDW 15.5 % (11.5-14.5) H 01/13/17 09:09 Plt Count 46 K/mcL (140-400) L 01/13/17 09:09 Neutrophils # 1.2 K/mcL (1.6-8.9) L 01/13/17 09:09 Platelet Estimate Decreased (Normal) L 01/12/17 13:47 PT 15.1 Seconds (9.4-12.1) H 01/12/17 13:47 BUN 6 mg/dL (7-20) L 01/13/17 06:26 Glucose 130 mg/dL (70-99) H 01/13/17 06:26 POC Glucose 129 (58-89) H 01/13/17 10:55 Total Bilirubin 1.7 mg/dL (0.2-1.2) H 01/12/17 13:47 AST 35 Units/L (5-34) H 01/12/17 13:47 - Diagnostic Findings Chest x-ray: report reviewed, image reviewed CT scan - chest: report reviewed, image reviewed - Clinical Findings Intake & Output: Intake & Output 01/13/17 01/13/17 01/13/17 07:59 15:59 23:59 Intake Total 10 / 10 0 / 0 Output Total 0 / 0 Balance 10 / 10 0 / 0 Weight 100 kg Consult Discharge Plan - Plan Referrals: Ranjan Forbes DO [Primary Care Provider] - 01/21/17 11:30 am (Please follow up as schedule!!!)
--- NOTE | 2017-01-13 17:28 | Procedure Note ---
Date of procedure: 01/13/17 Pre-op diagnosis: Right-sided pleural effusion Post-op diagnosis: same Procedure: Diagnostic and therapeutic thoracentesis Medications: Local lidocaine 1% 10 mL No immediate complications After obtaining informed consent, the patient was placed in a sitting position. Using ultrasound, the right hemithorax was examined revealing a moderately sized pleural effusion. The best entry site was marked. The area was prepped in the usual sterile fashion. Fluid was aspirated using a catheter 8 range over 18-gauge needle which was placed in the mid-scapular line. 800 mL of serous fluid was removed. Fluid was sent for routine pleural analysis. Patient 's condition improved after the procedure. Chest x-ray was ordered for any evidence of pneumothorax or complications. Anesthesia: local Surgeon: Hilary Wade Estimated blood loss (cc): 1 Disposition: floor
[2017-01-13 18:27] LABS: RBC,Pleural Fluid < 0.002 M/mcL
[2017-01-13 18:56] LABS: LDH,Pleural Fluid 111 Units/L (No Ref Range)
[2017-01-13 18:59] LABS: Total Protein,Pleural Fluid 2.3 g/dL (No Ref Range)
[2017-01-13 19:45] LABS: Appearance of Pleural Fl Hazy (Clear)
[2017-01-13] MEDS: Insulin DETEMIR 100 UNIT/ML X5UNITS SQ SCH (21:29)
[2017-01-14] MEDS: Insulin LISPRO 300 UNITS/3 ML VIAL SQ SCH ×2 (00:47→06:24)
[2017-01-14] MEDS: Cholecalciferol (D-3) 1,000 UNIT TABLET PO SCH (09:36)
[2017-01-14] MEDS: Gabapentin 300 MG CAPSULE PO SCH ×2 (09:37→14:04)
[2017-01-14] MEDS: Valsartan 80 MG TABLET PO SCH (09:37)
[2017-01-14] MEDS: levoFLOXacin 500 MG TABLET PO SCH (09:37)
[2017-01-14] MEDS: Loratadine 10 MG TABLET PO SCH (09:37)
--- NOTE | 2017-01-14 10:01 | ECHO - Doppler Report ---
Echocardiogram Name: Beatriz Quigley Date of Study: 01/14/2017 Date: 1950 Ht: 64.0 in Medical Record#: [id number] Age: 66 Wt: 223.0 lb Gender: Female BSA: 2.05 Order #: [id number] Location: [facility] Room #: [id number] Reading Physician: Eduardo Spaulding MD, [facility] [place] Helper: Ordering Physician: Lyle Oropeza MD Primary Physician: Ranjan Forbes DO Indications: EF, Pleural effusion Impressions: Normal left ventricular size and systolic function, LVEF 55-60%. Mild concentric left ventricular hypertrophy. Moderate left ventricular diastolic dysfunction. Normal right ventricular size and function. Mild aortic regurgitation. No evidence of pulmonary hypertension. Left Ventricular Wall Motion: Rest Echo Findings All wall segments showed normal motion. Findings: Study Quality * Suboptimal echo windows. ECG Findings * Normal sinus rhythm. Left Ventricle * Normal left ventricular size and systolic function, LVEF 55-60%. * Mild concentric left ventricular hypertrophy. * Moderate left ventricular diastolic dysfunction. Right Ventricle * Normal right ventricular size and function. Left Atrium * Normal left atrial size. Right Atrium * Normal right atrial size. Aorta * Normally sized aortic root. Pericardium * There is no pericardial effusion present. IVC * The IVC is not dilated. Tricuspid Valve * Tricuspid valve not well visualized. * No tricuspid stenosis. * Trace tricuspid regurgitation. * No evidence of pulmonary hypertension. Pulmonic Valve * Pulmonic valve is not well visualized. * No pulmonic stenosis. * No pulmonic regurgitation. Aortic Valve * Aortic valve not well visualized. * No aortic stenosis. * Mild aortic regurgitation. Mitral Valve * Mild mitral annular calcification * No mitral stenosis. * Trace mitral regurgitation. History Hypertension Diabetes Hypercholesteremia Family History of CAD 01/17/15 a was performed. Measurements: BP: 114/ 69 2D Normal Values RVIDd: 2.90 cm IVSd: 1.30 cm 0.6 - 1.0 cm LVIDd: 4.20 cm 3.7 - 5.6 cm LVPWd: 1.30 cm 0.6 - 1.1 cm LVIDs: 3.10 cm 1.5 - 3.6 cm AO: 2.80 cm < 4.0 cm %FS: 26.20 cm >25 % LA volume: 52 Mitral Valve Peak E:.95 m/sec Peak A:.87 m/sec E/A Ratio:1.1 Peak E' Lat Joseph:8.58 cm/s Peak E' Med Joseph:6.63 cm/s E/E' Lat Ratio:11 E/E' Med Ratio:14.3 Tricuspid Valve TV Regurg Peak Grad: 20.00mmHg TV Regurg Peak Joseph: 2.20m/sec Updated by Eduardo Spaulding MD, [facility] on 01/14/2017 9:55:30 AM electronically signed on 01/14/2017 9:57:23 AM with status of Final Wall Motion Ayala: 1=Normal, 2=Hypokinesis, 3=Akinesis, 4=Dyskinesis, 5=Aneurysmal, 6=Hyperkinetic, X=Not Visualized (Blank)=Missing
[2017-01-14] MEDS ORDERED: Furosemide 20 MG TABLET PO SCH (11:00)
[2017-01-14] MEDS ORDERED: Spironolactone 25 MG TABLET PO SCH (11:00)
[2017-01-14 11:19] VITALS: BP 100/57
[2017-01-14] MEDS ORDERED: Insulin LISPRO 300 UNITS/3 ML VIAL SQ SCH (12:00)
--- NOTE | 2017-01-14 13:38 | Discharge Summary ---
Date of Encounter: 01/14/17 Time of Encounter: 13:32 - Discharge Diagnosis (1) Pleural effusion, right Priority: Primary Status: Acute Comments: Transudate (2) Atelectasis of right lung Priority: Secondary Status: Acute (3) Cough Priority: Secondary Status: Chronic (4) Diabetes mellitus Priority: Secondary Status: Chronic Qualifiers: Diabetes mellitus type: type 2 Diabetes mellitus complication status: without complication Diabetes mellitus vermin exterminator insulin use: with vermin exterminator use Qualified Code(s): E11.9 - Type 2 diabetes mellitus without complications ; Z79.4 - vermin exterminator (current) use of insulin (5) 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 Priority: Secondary Status: Chronic (6) Thrombocytopenia Priority: Secondary Status: Chronic - Discharge Medications Prescriptions: Furosemide [Lasix] 20 mg PO DAILY #30 tablet Potassium Chloride 10 meq PO DAILY #30 tab.er.prt Spironolactone [Aldactone] 25 mg PO DAILY #30 tablet Home Medications: Albuterol Neb [Proventil Neb] 2.5 mg IH TID PRN 01/12/17 [History] Atorvastatin Calcium [Lipitor] 80 mg PO HS 01/12/17 [History] Cetirizine HCl [Zyrtec] 10 mg PO DAILY 01/12/17 [History] Cholecalciferol (D-3) [Vitamin D] 2,000 unit PO DAILY 01/12/17 [History] Gabapentin [Neurontin] 900 mg PO TID 01/12/17 [History] Insulin ASPART [Novolog Flexpen] 7 - 10 unit SQ TIDWM 01/12/17 [History] Insulin Glargine,Hum.rec.anlog [Lantus Solostar] 20 unit SQ HS 01/12/17 [History ] Metoprolol Tartrate [Lopressor] 50 mg PO BID 01/12/17 [History] Omeprazole [PriLOSEC] 40 mg PO DAILY 01/12/17 [History] Valsartan [Diovan] 80 mg PO DAILY 01/12/17 [History] Furosemide [Lasix] 20 mg PO DAILY #30 tablet 01/14/17 [Rx] Potassium Chloride 10 meq PO DAILY #30 tab.er.prt 01/14/17 [Rx] Spironolactone [Aldactone] 25 mg PO DAILY #30 tablet 01/14/17 [Rx] Allergies/Adverse Reactions: Allergies codeine Allergy (Verified 01/12/17 15:33) Swelling of Lip/Tongue/Throat Sulfa (Sulfonamide Antibiotics) Allergy (Verified 01/12/17 11:42) Swelling of Lip/Tongue/Throat metformin Adverse Reaction (Verified 01/12/17 11:42) Diarrhea Procedures/tests Complete & Pending: Procedures Performed prior 72 hours Category Date Time Status EV echocardiogram Routine Y 01/14/17 15:11 Completed Date of admission: 01/12/17 17:34 Primary care physician: Ranjan Forbes DO Consults: 01/12/17 17:09 Consult to Pulmonology [CONS] Routine Consulting Provider: [facility] [place] Reason for Consult: Right pleural effusion, history of left pleural effusion requiring thoracotomy with decortication. Call Completed: Yes Discharging clinician: Abilio Colon Anticipated date of discharge: 01/14/17 - Patient Status Disposition: Home, Self-Care Condition: Fair Functional capacity at discharge: independent ambulation Overall status at discharge: patient is progressing back to baseline - Discharge Instructions Follow Up With: Ranjan Forbes DO [Primary Care Provider] - 01/21/17 11:30 am (Please follow up as schedule!!!) - Diet and Activity Activity: resume usual activities as tolerated Diet: diabetic diet, low salt diet, other (Fluid restriction to 2 L per day) Hospital course: Ms. Quigley is a 66 year old female with history of nonalcoholic steatohepatitis /cirrhosis, polio with left-sided weakness who was admitted here after presenting with complaints of cough productive of whitish sputum without any hemoptysis or chest pain. She was also having dyspnea. She was found to have right-sided pleural effusion with atelectasis of the right lung. She was evaluated by pulmonology and recommended right-sided thoracentesis. She underwent the procedure with about 800 mL of serous fluid removed. This was turned sent for testing and appears to be transudative. This could be due to her chronic liver cirrhosis. She also underwent a 2-D echocardiogram which showed moderate left-sided lower diastolic dysfunction but the patient had normal ejection fraction. She is feeling much better today. At this time I would recommend starting her on diuretics to treat her cirrhosis and diastolic dysfunction. I will start her on 20 mg of Lasix and 25 mg of spironolactone. She is also recommended fluid restriction of 2 L per day. She will follow up with her primary care provider for further management. Patient does have chronic cough. When this could be due to atelectasis, she may need further outpatient workup if this does not improve. - Time Spent with Patient Total time spent providing and/or coordinating discharge services: Less than 30 minutes (25 min) - Constitutional Vitals: Temp Pulse Resp BP Pulse Ox 98 F 69 16 100/57 93 L 01/14/17 11:01/14/17 11:01/14/17 11:01/14/17 11:01/14/17 11:17 General appearance: Present: A&O X 3, morbidly obese, no acute distress - Respiratory Respiratory exam: Present: CTAB. Absent: accessory muscle use, rales, rhonchi, wheezes - Cardiovascular Cardiovascular exam: Present: RRR, +S1, +S2. Absent: diastolic murmur, gallop, rubs, systolic murmur - GI/Abdominal GI/Abdominal exam: Present: normal bowel sounds, soft, no peritoneal signs. Absent: distended, tenderness - Extremities Exam Extremities exam: Present: warm, radial pulses palpable and symetrical. Absent : calf tenderness, cyanotic, pedal edema - VTE Documentation of Mechanical Device: Graduated compression elastic hosiery - Attending Attestation This document has been at least partially created by [employer] recognition technology by Dr. Colon. Errors in grammar, wording or other phrases may exist. If errors are found after the documentation is signed, they will be addressed individually in the addendum section of this document when appropriate.
[2017-01-14] MEDS ORDERED: FLU VACC QS2016-17 36MOS UP/PF 0.5 ML SYRINGE IM ONE (14:19)
== END 2017-01-14 14:44 | disposition home or self-care (01) | DRG 187 ==
LOC: 2ANU 13:15 → EMEROO 13:15 → 2ANU 13:40 → SUATTDRO 17:34
PROVIDERS: ADMIT Internal Medicine Endocrinology, Diabetes & Metabolism; ATTEND Internal Medicine

== ENCOUNTER 2021-05-17 22:08 | Observation (INO) ==
[2021-05-17 23:57] LABS: Basophils % 0.5 %; Calcium 9.2 mg/dL (8.6-10.3); Eosinophils % 0.3 %; Immature Granulocytes % 0.3 % (0-4); Magnesium 1.8 mg/dL (1.6-2.6); Potassium 4.1 mEq/L (3.5-5.1); Red Cell Distribution Width 15.4 % (11.5-14.5)
[2021-05-17 23:59] LABS: Hematocrit 37.4 % (35.3-44.9); Hemoglobin 12.6 g/dL (11.5-15.4); Immature Platelets 5.5 % (1.1-6.1); Lymphocytes # 0.9 K/mcL (0.6-4.6); Lymphocytes % 22.7 %; Mean Corpuscular HGB Conc 33.7 g/dL (31.6-35.5); Mean Corpuscular Hemoglobin 30.3 pg (28.0-33.3); Mean Corpuscular Volume 89.9 fL (83.0-100.0); Mean Platelet Volume 9.9 fL (9.4-12.4); Monocytes # 0.4 K/mcL (0.0-1.3); Monocytes % 11.1 %; Neutrophils # 2.6 K/mcL (1.6-8.9); Red Blood Count 4.16 M/mcL (3.82-4.97); Segmented Neutrophils % 65.1 %
[2021-05-18] LABS: Platelet Count 73 K/mcL (140-400)
[2021-05-18] MEDS ORDERED: levETIRAcetam 1,000 MG in 0.9 % Sodium Chloride 100 ML IVPB ONE (02:12)
[2021-05-18] MEDS ORDERED: Naloxone 0.4 MG/ML INJ IVP PRN (03:05)
[2021-05-18] MEDS ORDERED: Acetaminophen 325 MG TABLET PO PRN (03:05)
[2021-05-18] MEDS ORDERED: Ondansetron ODT 4 MG TAB.RAPDIS SL PRN (03:05)
[2021-05-18] MEDS ORDERED: D5% in Water 1,000 ML IVC PRN (03:08)
[2021-05-18] MEDS ORDERED: Dextrose Gel 15 GM/37.5 ML TUBE PO PRN ×2 (03:08)
[2021-05-18] MEDS ORDERED: *HR* Dextrose 50 % in Water (Vial) 50 ML VIAL IVP PRN (03:08)
[2021-05-18] MEDS ORDERED: *HR* LORazepam 2 MG/ML VIAL IVP ONE ×2 (03:21→21:29)
[2021-05-18] MEDS: Insulin LISPRO 300 UNITS/3 ML VIAL SUBQ SCH ×4 (04:04→17:37)
[2021-05-18 04:36] LABS: Red Cell Distribution Width 15.2 % (11.5-14.5)
[2021-05-18 04:38] LABS: Hematocrit 33.4 % (35.3-44.9); Immature Platelets 4.2 % (1.1-6.1); Lymphocytes # 0.6 K/mcL (0.6-4.6); Mean Corpuscular HGB Conc 32.9 g/dL (31.6-35.5); Mean Corpuscular Hemoglobin 29.6 pg (28.0-33.3); Mean Corpuscular Volume 89.8 fL (83.0-100.0); Mean Platelet Volume 10.2 fL (9.4-12.4); Monocytes # 0.2 K/mcL (0.0-1.3); Monocytes % 10.8 %; Red Blood Count 3.72 M/mcL (3.82-4.97); Segmented Neutrophils % 57.2 %
[2021-05-18 04:43] LABS: Neutrophils # 1.1 K/mcL (1.6-8.9); Platelet Count 49 K/mcL (140-400)
[2021-05-18 04:49] LABS: INR 1.4; Prothrombin Time 16.2 Seconds (9.4-12.1)
[2021-05-18 04:52] LABS: Calcium 8.9 mg/dL (8.6-10.3); Magnesium 1.7 mg/dL (1.6-2.6); Potassium 3.7 mEq/L (3.5-5.1)
[2021-05-18 05:03] LABS: Thyroid Stimulating Hormone 3.746 mcIU/mL (0.340-5.600)
[2021-05-18 05:17] LABS: Folate > 22.3 ng/mL (3.0-16.0); Vitamin B12 383 pg/mL (250-1100)
[2021-05-18] MEDS: 0.9 % Sodium Chloride 500 ML IVC SCH ×4 (06:11→20:11)
[2021-05-18 10:59] LABS: Bilirubin,Urine Negative (Negative); Blood,Urine Trace-intact (Negative); Clarity,Urine Slightly Hazy (Clear); Color,Urine Yellow (Yellow); Glucose,Urine (UA) Normal (Normal); Ketones,Urine Negative (Negative); Leukocyte Esterase,Urine Moderate (Negative); Nitrite,Urine Positive (Negative); PH,Urine 6.5 pH Units (5.0-8.0); Protein,Urine Negative (Neg-Trace); Urobilinogen,Urine Normal (Normal)
[2021-05-18 11:27] LABS: RBC,Urine 0-3 per hpf (0-3)
[2021-05-18 11:28] LABS: Bacteria,Urine Many per hpf (None-Few); Squamous Epithelial Cell,Urine Few per hpf (None-Few); WBC,Urine 30-50 per hpf (0-3)
[2021-05-18] MEDS: Fluticasone Propionate Nasal 50 MCG/SPRAY BOTTLE NS SCH (14:49)
[2021-05-18 15:31] LABS: Estimated Average Glucose 103 mg/dl; Hemoglobin A1C 5.2 %
[2021-05-18] MEDS: Furosemide 40 MG TABLET PO SCH (18:40)
[2021-05-18] MEDS: Primidone 50 MG TABLET PO SCH (20:12)
[2021-05-18] MEDS ORDERED: Insulin DETEMIR 100 UNIT/ML X5UNITS SUBQ SCH (21:00)
[2021-05-18] MEDS ORDERED: Insulin LISPRO 300 UNITS/3 ML VIAL SUBQ SCH (21:00)
[2021-05-19] MEDS: 0.9 % Sodium Chloride 500 ML IVC SCH ×3 (00:18→14:07)
[2021-05-19 03:24] LABS: Basophils % 1.1 %; Eosinophils % 1.7 %; Hematocrit 31.2 % (35.3-44.9); Hemoglobin 10.2 g/dL (11.5-15.4); Immature Platelets 5.4 % (1.1-6.1); Lymphocytes # 0.6 K/mcL (0.6-4.6); Lymphocytes % 33.7 %; Mean Corpuscular HGB Conc 32.7 g/dL (31.6-35.5); Mean Corpuscular Volume 91.8 fL (83.0-100.0); Mean Platelet Volume 10.4 fL (9.4-12.4); Monocytes # 0.3 K/mcL (0.0-1.3); Monocytes % 14.4 %; Neutrophils # 0.9 K/mcL (1.6-8.9); Red Cell Distribution Width 15.3 % (11.5-14.5); Segmented Neutrophils % 49.1 %; White Blood Count 1.8 K/mcL (4.3-11.1)
[2021-05-19 03:28] LABS: Platelet Count 44 K/mcL (140-400)
[2021-05-19 03:44] LABS: BUN/Creatinine Ratio 17 (6-26); Blood Urea Nitrogen 17 mg/dL (8-23); Calcium 8.5 mg/dL (8.6-10.3); Carbon Dioxide 21 mEq/L (23-29); Chloride 104 mEq/L (98-107); Glucose 117 mg/dL (70-105); Osmolality,Calculated 277 (280-300); Sodium 132 mEq/L (136-145); eGFR For African Americans > 60 (> 60); eGFR For Non-African Americans 54 (> 60)
[2021-05-19 04:01] LABS: Platelet Estimate Marked Decrease (Normal)
[2021-05-19] MEDS: Insulin LISPRO 300 UNITS/3 ML VIAL SUBQ SCH ×2 (07:52→11:03)
[2021-05-19] MEDS ORDERED: *HR* LORazepam 2 MG/ML VIAL IVP ONE (08:44)
[2021-05-19] MEDS ORDERED: Magnesium Oxide 400 MG TABLET PO SCH (09:00)
[2021-05-19] MEDS ORDERED: Cholecalciferol (D-3) 1,000 UNIT (25MCG) TABLET PO SCH (09:00)
[2021-05-19] MEDS: Primidone 50 MG TABLET PO SCH (09:12)
[2021-05-19] MEDS: Furosemide 40 MG TABLET PO SCH (09:12)
[2021-05-19] MEDS: Fluticasone Propionate Nasal 50 MCG/SPRAY BOTTLE NS SCH (09:13)
[2021-05-19 10:32] VITALS: BP 111/70
== END 2021-05-19 15:05 | disposition home or self-care (01) ==
LOC: CDU 22:08 → EMEROOARM 22:08 → SUATTDRO 05-18 03:00 → CDU 05-18 03:02 → 3BNU 05-18 14:15
PROVIDERS: ADMIT Student in an Organized Health Care Education/Training Program; ATTEND Family Medicine

== ENCOUNTER 2021-07-14 23:33 | Inpatient (IN) ==
[2021-07-15 04:15] LABS: Basophils % 0.6 %; Eosinophils # 0.1 K/mcL (0.0-0.6); Eosinophils % 1.9 %; Hematocrit 27.4 % (35.3-44.9); Hemoglobin 9.5 g/dL (11.5-15.4); Immature Granulocytes % 0.3 % (0-4); Lymphocytes # 0.9 K/mcL (0.6-4.6); Lymphocytes % 27.7 %; Mean Corpuscular HGB Conc 34.7 g/dL (31.6-35.5); Mean Corpuscular Hemoglobin 31.7 pg (28.0-33.3); Mean Corpuscular Volume 91.3 fL (83.0-100.0); Mean Platelet Volume 10.7 fL (9.4-12.4); Monocytes # 0.4 K/mcL (0.0-1.3); Monocytes % 12.9 %; Neutrophils # 1.8 K/mcL (1.6-8.9); Red Cell Distribution Width 15.9 % (11.5-14.5); Segmented Neutrophils % 56.6 %; White Blood Count 3.1 K/mcL (4.3-11.1)
[2021-07-15 04:16] LABS: Platelet Count 45 K/mcL (140-400)
[2021-07-15 04:27] LABS: BUN/Creatinine Ratio 17 (6-26); Blood Urea Nitrogen 31 mg/dL (8-23); Calcium 8.7 mg/dL (8.6-10.3); Carbon Dioxide 24 mEq/L (23-29); Chloride 95 mEq/L (98-107); Glucose 101 mg/dL (70-105); Osmolality,Calculated 271 (280-300); Potassium 4.5 mEq/L (3.5-5.1); Sodium 127 mEq/L (136-145); eGFR For African Americans 32 (> 60); eGFR For Non-African Americans 27 (> 60)
[2021-07-15 04:35] LABS: Troponin I < 0.03 ng/mL (< 0.04)
[2021-07-15] MEDS ORDERED: Isovue-370 500 ML BOTTLE IVP ONE (04:40)
[2021-07-15 04:58] LABS: Adenovirus Not Detected (Not Detect); Bordetella Pertussis Not Detected (Not Detect); Chlamydophila pneumoniae Not Detected (Not Detect); Coronavirus 229E Not Detected (Not Detect); Coronavirus HKU1 Not Detected (Not Detect); Coronavirus NL63 Not Detected (Not Detect); Coronavirus OC43 Not Detected (Not Detect); Human Metapneumovirus Not Detected (Not Detect); Human Rhinovirus/Enterovirus DETECTED (Not Detect); Influenza A Subtype 2009 H1 Not Detected (Not Detect); Influenza B Not Detected (Not Detect); Mycoplasma pneumoniae Not Detected (Not Detect); Parainfluenza Virus 1 Not Detected (Not Detect); Parainfluenza Virus 2 Not Detected (Not Detect); Parainfluenza Virus 3 Not Detected (Not Detect); Parainfluenza Virus 4 Not Detected (Not Detect); Respiratory Syncytial Virus Not Detected (Not Detect); SARS-CoV-2 Not Detected (Not Detect)
[2021-07-15] MEDS ORDERED: Naloxone 0.4 MG/ML INJ IVP PRN (09:00)
[2021-07-15] MEDS ORDERED: Ondansetron 4 MG/2 ML VIAL IVP PRN (09:00)
[2021-07-15] MEDS ORDERED: Ipratropium/Albuterol Neb 3 ML IH PRN (09:04)
[2021-07-15] MEDS ORDERED: Dextrose Gel 15 GM/37.5 ML TUBE PO PRN ×2 (09:06)
[2021-07-15] MEDS ORDERED: D5% in Water 1,000 ML IVC PRN (09:06)
[2021-07-15] MEDS ORDERED: *HR* Dextrose 50 % in Water (Vial) 50 ML VIAL IVP PRN (09:06)
[2021-07-15] MEDS ORDERED: Acetaminophen IV 500 MG/50 ML BAG IVPB ONE (10:31)
[2021-07-15] MEDS ORDERED: GuaiFENesin/Dextromethorphan TABLET PO PRN (10:32)
[2021-07-15] MEDS: Azithromycin 250 MG TABLET PO SCH (11:42)
[2021-07-15] MEDS: predniSONE 20 MG TABLET PO SCH (11:42)
[2021-07-15] MEDS: Insulin LISPRO 300 UNITS/3 ML VIAL SUBQ SCH ×2 (12:05→16:55)
[2021-07-15] MEDS ORDERED: Fluconazole 100 MG TABLET PO ONE ×2 (14:37→14:45)
[2021-07-15] MEDS ORDERED: Fluconazole 150 MG TABLET PO ONE (14:41)
[2021-07-15] MEDS: Gabapentin 400 MG CAPSULE PO SCH ×2 (14:49→21:03)
[2021-07-15 18:59] LABS: Adenovirus F 40/41 PCR Not detected (Not detect); Astrovirus PCR Not detected (Not detect); C.difficile Toxin A/B Gene PCR Not detected (Not detect); Campylobacter by PCR Not detected (Not detect); Cryptosporidium by PCR Not detected (Not detect); Cyclospora cayetanensis PCR Not detected (Not detect); E. coli O157 by PCR Not detected (Not detect); Entamoeba histolytica PCR Not detected (Not detect); Enteroaggregative E.coli(EAEC) Not detected (Not detect); Enteropathogenic E.coli(EPEC) Not detected (Not detect); Enterotoxigenic E.coli (ETEC) Not detected (Not detect); Giardia lamblia PCR Not detected (Not detect); Norovirus GI/GII PCR Not detected (Not detect); Plesiomonas shigelloides PCR Not detected (Not detect); Rotavirus A PCR Not detected (Not detect); Salmonella PCR Not detected (Not detect); Sapovirus PCR Not detected (Not detect); Shig/EnteroinvasiveE coli EIEC Not detected (Not detect); Shigalike tox-prod E coli STEC Not detected (Not detect); Vibrio PCR Not detected (Not detect); Vibrio cholerae PCR Not detected (Not detect); Yersinia enterocolitica PCR Not detected (Not detect)
[2021-07-15] MEDS: Primidone 50 MG TABLET PO SCH (21:01)
[2021-07-15] MEDS: Melatonin 3 MG TABLET PO PRN (21:01)
[2021-07-15] MEDS: traZODone 50 MG TABLET PO SCH (21:04)
[2021-07-16 03:35] LABS: Basophils % 0.3 %; Immature Granulocytes % 0.3 % (0-4); Mean Corpuscular HGB Conc 33.7 g/dL (31.6-35.5); Red Cell Distribution Width 15.7 % (11.5-14.5); Segmented Neutrophils % 70.9 %
[2021-07-16 03:37] LABS: Eosinophils % 0.3 %; Hematocrit 25.8 % (35.3-44.9); Hemoglobin 8.7 g/dL (11.5-15.4); Immature Platelets 5.8 % (1.1-6.1); Lymphocytes # 0.6 K/mcL (0.6-4.6); Lymphocytes % 17.2 %; Mean Corpuscular Hemoglobin 31.2 pg (28.0-33.3); Mean Corpuscular Volume 92.5 fL (83.0-100.0); Mean Platelet Volume 11.1 fL (9.4-12.4); Monocytes # 0.4 K/mcL (0.0-1.3); Neutrophils # 2.3 K/mcL (1.6-8.9); Red Blood Count 2.79 M/mcL (3.82-4.97); White Blood Count 3.3 K/mcL (4.3-11.1)
[2021-07-16 03:39] LABS: Platelet Count 44 K/mcL (140-400)
[2021-07-16 03:54] LABS: Calcium 8.3 mg/dL (8.6-10.3); Magnesium 1.9 mg/dL (1.6-2.6); Phosphorous 3.6 mg/dL (2.7-4.5); Potassium 4.4 mEq/L (3.5-5.1)
[2021-07-16] MEDS: Magnesium Oxide 400 MG TABLET PO SCH (07:44)
[2021-07-16] MEDS: Cholecalciferol (D-3) 1,000 UNIT (25MCG) TABLET PO SCH (07:44)
[2021-07-16] MEDS: predniSONE 20 MG TABLET PO SCH (07:45)
[2021-07-16] MEDS: Gabapentin 400 MG CAPSULE PO SCH ×3 (07:45→21:32)
[2021-07-16] MEDS: Primidone 50 MG TABLET PO SCH ×2 (07:45→21:33)
[2021-07-16] MEDS: Insulin LISPRO 300 UNITS/3 ML VIAL SUBQ SCH ×3 (07:46→16:56)
[2021-07-16] MEDS: Azithromycin 250 MG TABLET PO SCH (12:14)
[2021-07-16] MEDS: Fluticasone Propionate Nasal 50 MCG/SPRAY BOTTLE NS SCH (12:14)
[2021-07-16 15:30] LABS: Appearance of Peritoneal Fl HAZY (Clear)
[2021-07-16 15:34] LABS: RBC,Peritoneal Fluid < 2000 RBC/mcL
[2021-07-16 15:41] LABS: Glucose,Peritoneal Fluid 167 mg/dL (No Ref Range); LDH,Peritoneal Fluid 34 Units/L (No Ref Range); Total Protein,Peritoneal Fluid < 2.0 g/dL
[2021-07-16 16:50] LABS: Basophils,Peritoneal Fluid 0 %
[2021-07-16] MEDS: Melatonin 3 MG TABLET PO PRN (21:46)
[2021-07-16] MEDS: traZODone 50 MG TABLET PO SCH (21:48)
[2021-07-16] MEDS: Insulin DETEMIR 100 UNIT/ML X5UNITS SUBQ SCH (23:38)
[2021-07-17 02:20] LABS: Hemoglobin 9.1 g/dL (11.5-15.4); Immature Platelets 4.8 % (1.1-6.1); Mean Corpuscular HGB Conc 33.7 g/dL (31.6-35.5); Mean Corpuscular Hemoglobin 31.1 pg (28.0-33.3); Mean Corpuscular Volume 92.2 fL (83.0-100.0); Mean Platelet Volume 10.9 fL (9.4-12.4); Red Blood Count 2.93 M/mcL (3.82-4.97); Red Cell Distribution Width 15.3 % (11.5-14.5); White Blood Count 3.3 K/mcL (4.3-11.1)
[2021-07-17 02:43] LABS: Calcium 8.5 mg/dL (8.6-10.3); Potassium 4.5 mEq/L (3.5-5.1)
[2021-07-17] MEDS: Magnesium Oxide 400 MG TABLET PO SCH (09:08)
[2021-07-17] MEDS: Primidone 50 MG TABLET PO SCH ×2 (09:09→20:49)
[2021-07-17] MEDS: Furosemide 20 MG TABLET PO SCH (09:09)
[2021-07-17] MEDS: Gabapentin 400 MG CAPSULE PO SCH ×3 (09:09→20:48)
[2021-07-17] MEDS: Cholecalciferol (D-3) 1,000 UNIT (25MCG) TABLET PO SCH (09:09)
[2021-07-17] MEDS: predniSONE 20 MG TABLET PO SCH (09:11)
[2021-07-17] MEDS: Fluticasone Propionate Nasal 50 MCG/SPRAY BOTTLE NS SCH (09:12)
[2021-07-17] MEDS: Insulin LISPRO 300 UNITS/3 ML VIAL SUBQ SCH ×3 (09:17→17:44)
[2021-07-17] MEDS ORDERED: Acetaminophen 325 MG TABLET PO PRN (20:31)
[2021-07-17] MEDS: Insulin DETEMIR 100 UNIT/ML X5UNITS SUBQ SCH (20:41)
[2021-07-17] MEDS: traZODone 50 MG TABLET PO SCH (21:05)
[2021-07-17] MEDS: Melatonin 3 MG TABLET PO PRN (21:48)
[2021-07-18 03:16] LABS: Hematocrit 27.3 % (35.3-44.9); Hemoglobin 9.3 g/dL (11.5-15.4); Immature Platelets 4.7 % (1.1-6.1); Mean Corpuscular HGB Conc 34.1 g/dL (31.6-35.5); Mean Corpuscular Hemoglobin 31.4 pg (28.0-33.3); Mean Corpuscular Volume 92.2 fL (83.0-100.0); Mean Platelet Volume 10.7 fL (9.4-12.4); Red Blood Count 2.96 M/mcL (3.82-4.97); Red Cell Distribution Width 15.3 % (11.5-14.5); White Blood Count 3.7 K/mcL (4.3-11.1)
[2021-07-18 03:35] LABS: Albumin/Globulin Ratio 1.3 (1.1-2.2); Bilirubin,Total 0.9 mg/dL (0.3-1.0); Calcium 8.4 mg/dL (8.6-10.3); Globulin 2.4 g/dL (2.4-3.5); Potassium 4.7 mEq/L (3.5-5.1); Total Protein 5.4 g/dL (6.4-8.9)
[2021-07-18 06:48] VITALS: PULSE 62; O2SAT 98
[2021-07-18] MEDS: Insulin LISPRO 300 UNITS/3 ML VIAL SUBQ SCH ×2 (07:23→11:13)
[2021-07-18] MEDS: Primidone 50 MG TABLET PO SCH (08:39)
[2021-07-18] MEDS: Magnesium Oxide 400 MG TABLET PO SCH (08:39)
[2021-07-18] MEDS: predniSONE 20 MG TABLET PO SCH (08:39)
[2021-07-18] MEDS: Cholecalciferol (D-3) 1,000 UNIT (25MCG) TABLET PO SCH (08:39)
[2021-07-18] MEDS: Gabapentin 400 MG CAPSULE PO SCH ×2 (08:39→16:01)
[2021-07-18] MEDS: Furosemide 20 MG TABLET PO SCH (08:40)
[2021-07-18] MEDS: Fluticasone Propionate Nasal 50 MCG/SPRAY BOTTLE NS SCH (08:41)
[2021-07-18 12:31] VITALS: BP 121/77; TEMP 98
[2021-07-19 10:16] LABS: Fluid Source for Albumin PERITONEAL FL
== END 2021-07-18 16:51 | disposition home or self-care (01) | DRG 202 ==
LOC: 2ANU 23:33 → EMEROOARM 23:33 → SUATTDRO 07-15 11:32 → 2ANU 07-15 12:21 → SUATTDRO 07-17 17:21
PROVIDERS: ADMIT Internal Medicine; ATTEND Internal Medicine

== ENCOUNTER 2021-08-13 00:38 | Inpatient (IN) ==
[2021-08-13] MEDS ORDERED: 0.9 % Sodium Chloride 1,000 ML IVC ONE (03:25)
[2021-08-13] MEDS ORDERED: *HR* FentaNYL (PF) 100 MCG/2 ML VIAL IVP ONE (03:26)
[2021-08-13 03:32] LABS: Eosinophils % 2.8 %; Hemoglobin 11.6 g/dL (11.5-15.4); Immature Granulocytes % 0.3 % (0-4); Red Cell Distribution Width 15.9 % (11.5-14.5)
[2021-08-13 03:33] LABS: Basophils % 0.9 %; Eosinophils # 0.1 K/mcL (0.0-0.6); Hematocrit 33.9 % (35.3-44.9); Immature Platelets 3.6 % (1.1-6.1); Lymphocytes # 0.7 K/mcL (0.6-4.6); Lymphocytes % 21.5 %; Mean Corpuscular HGB Conc 34.2 g/dL (31.6-35.5); Mean Corpuscular Hemoglobin 30.9 pg (28.0-33.3); Mean Corpuscular Volume 90.2 fL (83.0-100.0); Monocytes # 0.4 K/mcL (0.0-1.3); Monocytes % 12.6 %; Red Blood Count 3.76 M/mcL (3.82-4.97); Segmented Neutrophils % 61.9 %; White Blood Count 3.3 K/mcL (4.3-11.1)
[2021-08-13 03:38] LABS: Platelet Count 91 K/mcL (140-400)
[2021-08-13] MEDS ORDERED: cefTRIAXone 2,000 MG in 0.9 % Sodium Chloride Mini Bag 100 ML IVPB ONE (03:43)
[2021-08-13 03:50] LABS: Albumin 2.9 g/dL (3.5-5.7); Albumin/Globulin Ratio 1.2 (1.1-2.2); Bilirubin,Direct 0.4 mg/dL (0.0-0.2); Bilirubin,Indirect 0.8 mg/dL (0.0-1.0); Bilirubin,Total 1.2 mg/dL (0.3-1.0); Calcium 8.4 mg/dL (8.6-10.3); Globulin 2.4 g/dL (2.4-3.5); Potassium 4.9 mEq/L (3.5-5.1); Total Protein 5.3 g/dL (6.4-8.9)
[2021-08-13] MEDS ORDERED: Ondansetron 4 MG/2 ML VIAL IVP ONE (04:31)
[2021-08-13] MEDS ORDERED: Ondansetron 4 MG/2 ML VIAL ONE (04:32)
[2021-08-13 05:04] LABS: INR 1.4; Prothrombin Time 15.7 Seconds (9.4-12.1)
[2021-08-13 05:06] LABS: Activated Partial Thrombo Time 33.9 Seconds (26.0-36.0)
[2021-08-13 06:02] LABS: Amylase,Peritoneal Fluid < 10 Units/L (No Ref Range); Glucose,Peritoneal Fluid 139 mg/dL (No Ref Range); Total Protein,Peritoneal Fluid < 2.0 g/dL
[2021-08-13] MEDS ORDERED: Naloxone 0.4 MG/ML INJ IVP PRN (07:11)
[2021-08-13] MEDS ORDERED: *HR* OxyCODONE Immed Rel 5 MG TABLET PO PRN (07:13)
[2021-08-13] MEDS ORDERED: Ringers Solution, Lactated 1,000 ML IVC ONE ×2 (07:16→10:47)
[2021-08-13] MEDS ORDERED: Dextrose Gel 15 GM/37.5 ML TUBE PO PRN ×2 (07:24)
[2021-08-13] MEDS ORDERED: *HR* Dextrose 50 % in Water (Vial) 50 ML VIAL IVP PRN (07:24)
[2021-08-13] MEDS ORDERED: D5% in Water 1,000 ML IVC PRN (07:24)
[2021-08-13 09:07] LABS: Basophils,Peritoneal Fluid 0 %; Eosinophils,Peritoneal Fluid 0 %
[2021-08-13 09:08] LABS: Appearance of Peritoneal Fl CLEAR (Clear)
[2021-08-13 09:18] LABS: RBC,Peritoneal Fluid < 2000 RBC/mcL
[2021-08-13] MEDS: Lactulose Oral Soln 20 GM/30 ML UDC PO SCH ×2 (09:29→20:11)
[2021-08-13] MEDS: Insulin LISPRO 300 UNITS/3 ML VIAL SUBQ SCH ×4 (09:49→20:13)
[2021-08-13 10:24] LABS: Chol/HDL Ratio 3.2 (0-4.9)
[2021-08-13] MEDS ORDERED: Isovue-370 500 ML BOTTLE IVP ONE (10:50)
[2021-08-13] MEDS: *HR* HYDROmorphone (PF) 1 MG/ML SYRINGE IVP PRN (10:56)
[2021-08-13] MEDS ORDERED: *HR* Heparin 5,000 UNIT/ML VIAL SQ SCH (14:00)
[2021-08-13] MEDS: Ondansetron 4 MG/2 ML VIAL IVP PRN ×2 (14:17→22:30)
[2021-08-13 16:02] LABS: Adenovirus F 40/41 PCR Not detected (Not detect); Astrovirus PCR Not detected (Not detect); C.difficile Toxin A/B Gene PCR Not detected (Not detect); Campylobacter by PCR Not detected (Not detect); Cryptosporidium by PCR Not detected (Not detect); Cyclospora cayetanensis PCR Not detected (Not detect); E. coli O157 by PCR Not detected (Not detect); Entamoeba histolytica PCR Not detected (Not detect); Enteroaggregative E.coli(EAEC) Not detected (Not detect); Enteropathogenic E.coli(EPEC) Not detected (Not detect); Enterotoxigenic E.coli (ETEC) Not detected (Not detect); Giardia lamblia PCR Not detected (Not detect); Norovirus GI/GII PCR Not detected (Not detect); Plesiomonas shigelloides PCR Not detected (Not detect); Rotavirus A PCR Not detected (Not detect); Salmonella PCR Not detected (Not detect); Sapovirus PCR Not detected (Not detect); Shig/EnteroinvasiveE coli EIEC Not detected (Not detect); Shigalike tox-prod E coli STEC Not detected (Not detect); Vibrio PCR Not detected (Not detect); Vibrio cholerae PCR Not detected (Not detect); Yersinia enterocolitica PCR Not detected (Not detect)
[2021-08-13 19:00] LABS: Bacteria,Urine Moderate per hpf (None-Few); Bilirubin,Urine Negative (Negative); Blood,Urine Negative (Negative); Clarity,Urine Turbid (Clear); Color,Urine Yellow (Yellow); Glucose,Urine (UA) Normal (Normal); Ketones,Urine Negative (Negative); Leukocyte Esterase,Urine Large (Negative); Mucus,Urine Few per lpf (None-Few); Nitrite,Urine Negative (Negative); Protein,Urine 50 mg/dL (Neg-Trace); Specific Gravity,Urine 1.029 (1.010-1.025); Squamous Epithelial Cell,Urine Moderate per hpf (None-Few); Transitional Epi Cells,Urine Few per hpf (None-Few); Urobilinogen,Urine Normal (Normal); WBC,Urine 50-100 per hpf (0-3)
[2021-08-14] MEDS ORDERED: Prochlorperazine 10 MG/2 ML VIAL IVP PRN (00:14)
[2021-08-14] MEDS: *HR* OxyCODONE Immed Rel 5 MG TABLET PO PRN ×2 (04:43→11:25)
[2021-08-14 07:43] LABS: Hematocrit 32.9 % (35.3-44.9)
[2021-08-14 07:45] LABS: Hemoglobin 10.8 g/dL (11.5-15.4); Immature Platelets 3.6 % (1.1-6.1); Mean Corpuscular HGB Conc 32.8 g/dL (31.6-35.5); Mean Corpuscular Hemoglobin 30.7 pg (28.0-33.3); Mean Corpuscular Volume 93.5 fL (83.0-100.0); Mean Platelet Volume 10.2 fL (9.4-12.4); Red Blood Count 3.52 M/mcL (3.82-4.97)
[2021-08-14 08:02] LABS: Albumin 2.8 g/dL (3.5-5.7); Albumin/Globulin Ratio 1.3 (1.1-2.2); Calcium 8.5 mg/dL (8.6-10.3); Globulin 2.2 g/dL (2.4-3.5); Potassium 4.8 mEq/L (3.5-5.1)
[2021-08-14] MEDS: Insulin LISPRO 300 UNITS/3 ML VIAL SUBQ SCH ×4 (10:08→20:10)
[2021-08-14] MEDS: cefTRIAXone 2,000 MG in Water for inj. (sterile) 20 ML IVP SCH (11:39)
[2021-08-14] MEDS: Lactulose Oral Soln 20 GM/30 ML UDC PO SCH ×2 (11:39→20:09)
[2021-08-14 15:08] LABS: Fluid Source for Triglycerides ASCITES FLUID
[2021-08-14] MEDS: MetroNIDAZOLE 500 MG/100 ML 500 MG/100 ML BAG IVPB SCH (17:43)
[2021-08-14] MEDS: traZODone 50 MG TABLET PO SCH (20:10)
[2021-08-15] MEDS: MetroNIDAZOLE 500 MG/100 ML 500 MG/100 ML BAG IVPB SCH ×4 (00:18→23:44)
[2021-08-15] MEDS: Ondansetron 4 MG/2 ML VIAL IVP PRN ×2 (00:24→21:13)
[2021-08-15] MEDS: Ringers Solution, Lactated 1,000 ML IVC SCH ×3 (04:58→21:38)
[2021-08-15] MEDS: *HR* Promethazine 25 MG/ML VIAL IM PRN (05:02)
[2021-08-15 06:24] LABS: Hemoglobin 11.5 g/dL (11.5-15.4); Immature Granulocytes % 0.6 % (0-4); Mean Corpuscular Hemoglobin 30.7 pg (28.0-33.3); Mean Platelet Volume 10.7 fL (9.4-12.4); Red Blood Count 3.74 M/mcL (3.82-4.97); Red Cell Distribution Width 15.9 % (11.5-14.5)
[2021-08-15 06:26] LABS: Basophils % 0.6 %; Eosinophils % 0.4 %; Hematocrit 35.2 % (35.3-44.9); Immature Platelets 3.8 % (1.1-6.1); Lymphocytes # 0.7 K/mcL (0.6-4.6); Lymphocytes % 13.9 %; Mean Corpuscular HGB Conc 32.7 g/dL (31.6-35.5); Mean Corpuscular Volume 94.1 fL (83.0-100.0); Monocytes # 0.5 K/mcL (0.0-1.3); Monocytes % 10.4 %; Neutrophils # 3.8 K/mcL (1.6-8.9); Segmented Neutrophils % 74.1 %; White Blood Count 5.1 K/mcL (4.3-11.1)
[2021-08-15 06:31] LABS: Platelet Count 62 K/mcL (140-400)
[2021-08-15] MEDS: Insulin LISPRO 300 UNITS/3 ML VIAL SUBQ SCH ×4 (09:04→21:15)
[2021-08-15] MEDS: Lactulose Oral Soln 20 GM/30 ML UDC PO SCH (09:04)
[2021-08-15] MEDS: Cholecalciferol (D-3) 1,000 UNIT (25MCG) TABLET PO SCH (09:10)
[2021-08-15] MEDS: Furosemide 20 MG TABLET PO SCH (09:11)
[2021-08-15] MEDS: Magnesium Oxide 400 MG TABLET PO SCH (09:11)
[2021-08-15] MEDS: Fluticasone Propionate Nasal 50 MCG/SPRAY BOTTLE NS SCH (09:15)
[2021-08-15 09:19] LABS: Albumin 3.1 g/dL (3.5-5.7); Albumin/Globulin Ratio 1.5 (1.1-2.2); Bilirubin,Total 1.1 mg/dL (0.3-1.0); Calcium 8.7 mg/dL (8.6-10.3); Globulin 2.1 g/dL (2.4-3.5); Potassium 5.2 mEq/L (3.5-5.1); Total Protein 5.2 g/dL (6.4-8.9)
[2021-08-15] MEDS: cefTRIAXone 2,000 MG in Water for inj. (sterile) 20 ML IVP SCH (11:21)
[2021-08-15 11:22] LABS: Triglycerides,Body Fluid 51 mg/dL
[2021-08-15] MEDS: *HR* HYDROmorphone (PF) 1 MG/ML SYRINGE IVP PRN (11:22)
[2021-08-15] MEDS: traZODone 50 MG TABLET PO SCH (21:14)
[2021-08-16] MEDS: *HR* Promethazine 25 MG/ML VIAL IM PRN ×3 (02:06→23:32)
[2021-08-16] MEDS: *HR* OxyCODONE Immed Rel 5 MG TABLET PO PRN (02:06)
[2021-08-16 02:44] LABS: Basophils % 0.4 %; Eosinophils % 0.6 %; Hemoglobin 10.3 g/dL (11.5-15.4)
[2021-08-16 02:46] LABS: Hematocrit 30.6 % (35.3-44.9); Immature Granulocytes % 0.6 % (0-4); Immature Platelets 3.7 % (1.1-6.1); Lymphocytes # 0.5 K/mcL (0.6-4.6); Lymphocytes % 10.7 %; Mean Corpuscular HGB Conc 33.7 g/dL (31.6-35.5); Mean Corpuscular Hemoglobin 31.3 pg (28.0-33.3); Mean Platelet Volume 10.4 fL (9.4-12.4); Monocytes # 0.6 K/mcL (0.0-1.3); Monocytes % 12.8 %; Neutrophils # 3.6 K/mcL (1.6-8.9); Red Blood Count 3.29 M/mcL (3.82-4.97); Red Cell Distribution Width 15.9 % (11.5-14.5); Segmented Neutrophils % 74.9 %; White Blood Count 4.8 K/mcL (4.3-11.1)
[2021-08-16 02:53] LABS: Platelet Count 73 K/mcL (140-400)
[2021-08-16 03:08] LABS: Albumin 2.8 g/dL (3.5-5.7); Albumin/Globulin Ratio 1.2 (1.1-2.2); Bilirubin,Total 0.9 mg/dL (0.3-1.0); Calcium 7.9 mg/dL (8.6-10.3); Globulin 2.4 g/dL (2.4-3.5); Potassium 4.7 mEq/L (3.5-5.1); Total Protein 5.2 g/dL (6.4-8.9)
[2021-08-16 03:25] LABS: Poikilocytosis 1+ (Not Present)
[2021-08-16 03:26] LABS: Anisocytosis 1+ (Not Present); Platelet Estimate Normal (Normal)
[2021-08-16] MEDS: Ringers Solution, Lactated 1,000 ML IVC SCH ×2 (05:39→13:40)
[2021-08-16] MEDS: Insulin LISPRO 300 UNITS/3 ML VIAL SUBQ SCH ×4 (09:16→20:26)
[2021-08-16] MEDS: Cholecalciferol (D-3) 1,000 UNIT (25MCG) TABLET PO SCH (09:23)
[2021-08-16] MEDS: Furosemide 20 MG TABLET PO SCH ×2 (09:23→17:20)
[2021-08-16] MEDS: Magnesium Oxide 400 MG TABLET PO SCH (09:23)
[2021-08-16] MEDS: cefTRIAXone 2,000 MG in Water for inj. (sterile) 20 ML IVP SCH (09:28)
[2021-08-16] MEDS: MetroNIDAZOLE 500 MG/100 ML 500 MG/100 ML BAG IVPB SCH ×3 (09:31→23:24)
[2021-08-16] MEDS: Ondansetron 4 MG/2 ML VIAL IVP PRN ×2 (11:18→20:25)
[2021-08-16] MEDS: Fluticasone Propionate Nasal 50 MCG/SPRAY BOTTLE NS SCH (11:54)
[2021-08-16] MEDS: traZODone 50 MG TABLET PO SCH (20:25)
[2021-08-17 00:52] LABS: Hematocrit 30.1 % (35.3-44.9); Immature Granulocytes % 0.2 % (0-4); Mean Corpuscular Volume 90.9 fL (83.0-100.0); Red Blood Count 3.31 M/mcL (3.82-4.97); Red Cell Distribution Width 15.9 % (11.5-14.5); Segmented Neutrophils % 64.8 %
[2021-08-17 00:54] LABS: Basophils % 0.4 %; Eosinophils # 0.1 K/mcL (0.0-0.6); Eosinophils % 1.8 %; Hemoglobin 10.1 g/dL (11.5-15.4); Immature Platelets 4.3 % (1.1-6.1); Lymphocytes % 18.7 %; Mean Corpuscular HGB Conc 33.6 g/dL (31.6-35.5); Mean Corpuscular Hemoglobin 30.5 pg (28.0-33.3); Mean Platelet Volume 10.3 fL (9.4-12.4); Monocytes # 0.7 K/mcL (0.0-1.3); Monocytes % 14.1 %; Neutrophils # 3.3 K/mcL (1.6-8.9); White Blood Count 5.1 K/mcL (4.3-11.1)
[2021-08-17 00:56] LABS: Platelet Count 79 K/mcL (140-400)
[2021-08-17 00:57] LABS: Albumin 2.7 g/dL (3.5-5.7); Bilirubin,Total 0.7 mg/dL (0.3-1.0); Globulin 2.7 g/dL (2.4-3.5); Potassium 4.2 mEq/L (3.5-5.1); Total Protein 5.4 g/dL (6.4-8.9)
[2021-08-17] MEDS: Ondansetron 4 MG/2 ML VIAL IVP PRN (04:29)
[2021-08-17 07:41] VITALS: BP 159/88; PULSE 117; TEMP 98.5; O2SAT 97
[2021-08-17] MEDS: Magnesium Oxide 400 MG TABLET PO SCH (08:17)
[2021-08-17] MEDS: Furosemide 20 MG TABLET PO SCH (08:18)
[2021-08-17] MEDS: MetroNIDAZOLE 500 MG/100 ML 500 MG/100 ML BAG IVPB SCH (08:18)
[2021-08-17] MEDS: cefTRIAXone 2,000 MG in Water for inj. (sterile) 20 ML IVP SCH (08:18)
[2021-08-17] MEDS: Insulin LISPRO 300 UNITS/3 ML VIAL SUBQ SCH (08:19)
[2021-08-17] MEDS: Fluticasone Propionate Nasal 50 MCG/SPRAY BOTTLE NS SCH (09:49)
[2021-08-17] MEDS: Cholecalciferol (D-3) 1,000 UNIT (25MCG) TABLET PO SCH (09:49)
== END 2021-08-17 10:41 | disposition home or self-care (01) | DRG 919 ==
LOC: EMEROOARM 00:38 → 3BNU 00:38 → SUATTDRO 12:15
PROVIDERS: ADMIT Student in an Organized Health Care Education/Training Program; ATTEND Family Medicine

== ENCOUNTER 2021-09-19 10:52 | Inpatient (IN) ==
[2021-09-19] MEDS ORDERED: Ampicillin/Sulbactam 3,000 MG in 0.9 % Sodium Chloride Mini Bag 100 ML IVPB ONE (12:05)
[2021-09-19] MEDS ORDERED: Morphine Sulfate 2 MG/ML SYRINGE IVP ONE (12:06)
[2021-09-19 13:08] LABS: Immature Granulocytes % 0.2 % (0-4)
[2021-09-19 13:10] LABS: Basophils % 0.5 %; Eosinophils # 0.1 K/mcL (0.0-0.6); Eosinophils % 1.1 %; Hematocrit 28.2 % (35.3-44.9); Hemoglobin 9.4 g/dL (11.5-15.4); Immature Platelets 4.4 % (1.1-6.1); Lymphocytes # 0.4 K/mcL (0.6-4.6); Lymphocytes % 9.7 %; Mean Corpuscular HGB Conc 33.3 g/dL (31.6-35.5); Mean Corpuscular Hemoglobin 30.5 pg (28.0-33.3); Mean Corpuscular Volume 91.6 fL (83.0-100.0); Mean Platelet Volume 10.4 fL (9.4-12.4); Monocytes # 0.3 K/mcL (0.0-1.3); Neutrophils # 3.6 K/mcL (1.6-8.9); Red Blood Count 3.08 M/mcL (3.82-4.97); Red Cell Distribution Width 15.9 % (11.5-14.5); Segmented Neutrophils % 81.5 %; White Blood Count 4.4 K/mcL (4.3-11.1)
[2021-09-19 13:11] LABS: Platelet Count 57 K/mcL (140-400)
[2021-09-19 13:16] LABS: INR 1.4; Prothrombin Time 15.7 Seconds (9.4-12.1)
[2021-09-19 13:19] LABS: Activated Partial Thrombo Time 32.2 Seconds (26.0-36.0)
[2021-09-19] MEDS ORDERED: Isovue-370 500 ML BOTTLE IVP ONE (13:30)
[2021-09-19] MEDS ORDERED: Naloxone 0.4 MG/ML INJ IVP PRN (13:51)
[2021-09-19] MEDS ORDERED: *HR* OxyCODONE Immed Rel 5 MG TABLET PO PRN (13:51)
[2021-09-19] MEDS ORDERED: Melatonin 3 MG TABLET PO PRN (13:51)
[2021-09-19] MEDS ORDERED: Mag Hydrox/Al Hydrox/Simeth 30 ML UDC PO PRN (13:51)
[2021-09-19 13:58] LABS: Calcium 8.5 mg/dL (8.6-10.3); Potassium 5.3 mEq/L (3.5-5.1)
[2021-09-19] MEDS ORDERED: Dextrose Gel 15 GM/37.5 ML TUBE PO PRN ×2 (13:58)
[2021-09-19] MEDS ORDERED: D5% in Water 1,000 ML IVC PRN (13:58)
[2021-09-19] MEDS ORDERED: *HR* Dextrose 50 % in Water (Syg) 50 ML SYRINGE IVP PRN (13:58)
[2021-09-19] MEDS ORDERED: Albumin 25% 25gram/100mL 25 GM/100 ML IV.SOLN IVPB ONE (15:28)
[2021-09-19] MEDS: Insulin LISPRO 300 UNITS/3 ML VIAL SUBQ SCH ×2 (16:14→21:31)
[2021-09-19 18:42] LABS: Folate 14.8 ng/mL (3.0-16.0)
[2021-09-19] MEDS: Ampicillin/Sulbactam 3,000 MG in 0.9 % Sodium Chloride Mini Bag 100 ML IVPB SCH (21:40)
[2021-09-19] MEDS: Primidone 50 MG TABLET PO SCH (21:40)
[2021-09-19] MEDS: *HR* OxyCODONE Immed Rel 5 MG TABLET PO PRN (22:11)
[2021-09-20] MEDS: Ampicillin/Sulbactam 3,000 MG in 0.9 % Sodium Chloride Mini Bag 100 ML IVPB SCH ×3 (00:55→13:35)
[2021-09-20 07:46] LABS: Hematocrit 25.8 % (35.3-44.9); Hemoglobin 8.5 g/dL (11.5-15.4); Mean Corpuscular HGB Conc 32.9 g/dL (31.6-35.5)
[2021-09-20 07:48] LABS: Basophils % 0.6 %; Eosinophils # 0.1 K/mcL (0.0-0.6); Eosinophils % 2.3 %; Immature Granulocytes % 0.6 % (0-4); Immature Platelets 3.1 % (1.1-6.1); Lymphocytes # 0.4 K/mcL (0.6-4.6); Lymphocytes % 12.6 %; Mean Corpuscular Hemoglobin 30.6 pg (28.0-33.3); Mean Corpuscular Volume 92.8 fL (83.0-100.0); Mean Platelet Volume 10.4 fL (9.4-12.4); Monocytes # 0.3 K/mcL (0.0-1.3); Neutrophils # 2.7 K/mcL (1.6-8.9); Red Blood Count 2.78 M/mcL (3.82-4.97); Red Cell Distribution Width 15.8 % (11.5-14.5); Segmented Neutrophils % 75.9 %; White Blood Count 3.5 K/mcL (4.3-11.1)
[2021-09-20] MEDS: Insulin LISPRO 300 UNITS/3 ML VIAL SUBQ SCH ×4 (07:51→20:10)
[2021-09-20 07:59] LABS: Platelet Count 53 K/mcL (140-400)
[2021-09-20 08:09] LABS: Albumin 3.2 g/dL (3.5-5.7); Albumin/Globulin Ratio 1.5 (1.1-2.2); Bilirubin,Total 1.3 mg/dL (0.3-1.0); Calcium 8.5 mg/dL (8.6-10.3); Globulin 2.2 g/dL (2.4-3.5); Potassium 4.8 mEq/L (3.5-5.1); Total Protein 5.4 g/dL (6.4-8.9)
[2021-09-20] MEDS: Primidone 50 MG TABLET PO SCH ×3 (08:25→20:10)
[2021-09-20] MEDS: Magnesium Oxide 400 MG TABLET PO SCH (08:25)
[2021-09-20] MEDS: Cholecalciferol (D-3) 1,000 UNIT (25MCG) TABLET PO SCH (08:25)
[2021-09-20] MEDS: *HR* OxyCODONE Immed Rel 5 MG TABLET PO PRN ×2 (08:27→14:33)
[2021-09-20] MEDS: Fluticasone Propionate Nasal 50 MCG/SPRAY BOTTLE NS SCH (10:34)
[2021-09-20 14:38] LABS: INR 1.4; Prothrombin Time 15.8 Seconds (9.4-12.1)
[2021-09-21] MEDS: Ampicillin/Sulbactam 3,000 MG in 0.9 % Sodium Chloride Mini Bag 100 ML IVPB SCH ×2 (01:57→14:07)
[2021-09-21 02:53] LABS: Basophils % 0.3 %; Immature Granulocytes % 0.3 % (0-4); Red Blood Count 2.71 M/mcL (3.82-4.97); Red Cell Distribution Width 15.8 % (11.5-14.5)
[2021-09-21 02:55] LABS: Eosinophils # 0.1 K/mcL (0.0-0.6); Eosinophils % 2.7 %; Hematocrit 24.9 % (35.3-44.9); Hemoglobin 8.2 g/dL (11.5-15.4); Immature Platelets 3.8 % (1.1-6.1); Lymphocytes # 0.6 K/mcL (0.6-4.6); Lymphocytes % 19.7 %; Mean Corpuscular HGB Conc 32.9 g/dL (31.6-35.5); Mean Corpuscular Hemoglobin 30.3 pg (28.0-33.3); Mean Corpuscular Volume 91.9 fL (83.0-100.0); Mean Platelet Volume 10.3 fL (9.4-12.4); Monocytes # 0.4 K/mcL (0.0-1.3)
[2021-09-21 03:01] LABS: Platelet Count 56 K/mcL (140-400)
[2021-09-21 03:20] LABS: Calcium 8.4 mg/dL (8.6-10.3); Magnesium 1.7 mg/dL (1.6-2.6); Phosphorous 3.8 mg/dL (2.7-4.5); Potassium 5.7 mEq/L (3.5-5.1)
[2021-09-21] MEDS: Insulin LISPRO 300 UNITS/3 ML VIAL SUBQ SCH ×4 (08:02→21:33)
[2021-09-21] MEDS ORDERED: Albumin 25% 25gram/100mL 25 GM/100 ML IV.SOLN IVPB ONE (08:04)
[2021-09-21] MEDS ORDERED: Insulin Human Regular 10 UNIT in 0.9 % Sodium Chloride 10 ML IV ONE (08:05)
[2021-09-21] MEDS ORDERED: *HR* Dextrose 50 % in Water (Vial) 50 ML VIAL IVP ONE (08:06)
[2021-09-21] MEDS: Cholecalciferol (D-3) 1,000 UNIT (25MCG) TABLET PO SCH (08:32)
[2021-09-21] MEDS: Primidone 50 MG TABLET PO SCH ×3 (08:32→21:32)
[2021-09-21] MEDS: Magnesium Oxide 400 MG TABLET PO SCH (08:33)
[2021-09-21] MEDS: Ondansetron ODT 4 MG TAB.RAPDIS SL PRN (09:05)
[2021-09-21 09:16] LABS: Creatinine,Urine 134 mg/dL; Sodium, Urine < 10.0 mEq/L
[2021-09-21] MEDS: Fluticasone Propionate Nasal 50 MCG/SPRAY BOTTLE NS SCH (10:32)
[2021-09-21] MEDS: Albumin 25% 25gram/100mL 25 GM/100 ML IV.SOLN IVPB SCH (15:18)
[2021-09-22] MEDS: Albumin 25% 25gram/100mL 25 GM/100 ML IV.SOLN IVPB SCH ×2 (00:18→09:03)
[2021-09-22] MEDS: Ampicillin/Sulbactam 3,000 MG in 0.9 % Sodium Chloride Mini Bag 100 ML IVPB SCH ×2 (03:21→14:29)
[2021-09-22 03:28] LABS: Basophils % 0.8 %; Hemoglobin 6.9 g/dL (11.5-15.4); Mean Platelet Volume 10.6 fL (9.4-12.4); Red Cell Distribution Width 15.6 % (11.5-14.5)
[2021-09-22 03:30] LABS: Eosinophils % 2.4 %; Immature Platelets 3.6 % (1.1-6.1); Lymphocytes # 0.4 K/mcL (0.6-4.6); Lymphocytes % 30.4 %; Mean Corpuscular HGB Conc 32.9 g/dL (31.6-35.5); Mean Corpuscular Hemoglobin 30.5 pg (28.0-33.3); Mean Corpuscular Volume 92.9 fL (83.0-100.0); Monocytes # 0.2 K/mcL (0.0-1.3); Monocytes % 13.6 %; Neutrophils # 0.7 K/mcL (1.6-8.9); Red Blood Count 2.26 M/mcL (3.82-4.97); Segmented Neutrophils % 52.8 %; White Blood Count 1.3 K/mcL (4.3-11.1)
[2021-09-22 03:34] LABS: Calcium 8.1 mg/dL (8.6-10.3); Magnesium 1.8 mg/dL (1.6-2.6); Phosphorous 4.4 mg/dL (2.7-4.5)
[2021-09-22 03:59] LABS: Platelet Count 41 K/mcL (140-400)
[2021-09-22 06:05] LABS: Platelet Estimate Marked Decrease (Normal)
[2021-09-22] MEDS: Ondansetron ODT 4 MG TAB.RAPDIS SL PRN (06:40)
[2021-09-22] MEDS: Insulin LISPRO 300 UNITS/3 ML VIAL SUBQ SCH ×2 (07:40→12:34)
[2021-09-22] MEDS: Magnesium Oxide 400 MG TABLET PO SCH (09:03)
[2021-09-22] MEDS: Primidone 50 MG TABLET PO SCH ×2 (09:03→14:29)
[2021-09-22] MEDS: Cholecalciferol (D-3) 1,000 UNIT (25MCG) TABLET PO SCH (09:03)
[2021-09-22] MEDS: Fluticasone Propionate Nasal 50 MCG/SPRAY BOTTLE NS SCH (09:04)
[2021-09-22 11:16] LABS: Basophils % 0.6 %; Eosinophils % 1.9 %; Hematocrit 22.5 % (35.3-44.9); Hemoglobin 7.2 g/dL (11.5-15.4); Lymphocytes # 0.3 K/mcL (0.6-4.6); Mean Corpuscular Volume 93.8 fL (83.0-100.0); Mean Platelet Volume 9.7 fL (9.4-12.4); Monocytes # 0.2 K/mcL (0.0-1.3); Monocytes % 15.3 %; Red Cell Distribution Width 15.6 % (11.5-14.5); Segmented Neutrophils % 61.2 %; White Blood Count 1.6 K/mcL (4.3-11.1)
[2021-09-22 11:18] LABS: Platelet Count 40 K/mcL (140-400)
[2021-09-22] MEDS ORDERED: Lidocaine/EPI 1:100k 1% 20 ML VIAL INFILT ONE (11:56)
[2021-09-22] MEDS: *HR* OxyCODONE Immed Rel 5 MG TABLET PO PRN (15:36)
[2021-09-22 16:06] VITALS: BP 144/67; PULSE 98; TEMP 98.4; O2SAT 94
== END 2021-09-22 17:30 | disposition home or self-care (01) | DRG 602 ==
LOC: SUATTDRO → 3ANU 10:52 → EMEROOARM 10:52 → 3ANU 15:54
PROVIDERS: ADMIT Family Medicine; ATTEND Family Medicine

== ENCOUNTER 2021-10-03 23:48 | Inpatient (IN) ==
[2021-10-04] MEDS ORDERED: Isovue-370 500 ML BOTTLE IVP ONE (00:13)
[2021-10-04 00:42] LABS: Basophils % 0.6 %; Immature Granulocytes % 0.3 % (0-4)
[2021-10-04 00:44] LABS: Eosinophils # 0.2 K/mcL (0.0-0.6); Hematocrit 31.3 % (35.3-44.9); Hemoglobin 10.5 g/dL (11.5-15.4); Immature Platelets 4.3 % (1.1-6.1); Lymphocytes # 0.8 K/mcL (0.6-4.6); Lymphocytes % 11.5 %; Mean Corpuscular HGB Conc 33.5 g/dL (31.6-35.5); Mean Corpuscular Hemoglobin 30.4 pg (28.0-33.3); Mean Corpuscular Volume 90.7 fL (83.0-100.0); Mean Platelet Volume 10.4 fL (9.4-12.4); Monocytes # 0.7 K/mcL (0.0-1.3); Monocytes % 9.8 %; Neutrophils # 5.2 K/mcL (1.6-8.9); Platelet Count 86 K/mcL (140-400); Red Blood Count 3.45 M/mcL (3.82-4.97); Segmented Neutrophils % 74.8 %; White Blood Count 6.9 K/mcL (4.3-11.1)
[2021-10-04 01:00] LABS: BUN/Creatinine Ratio 28 (6-26); Blood Urea Nitrogen 46 mg/dL (8-23); Calcium 8.4 mg/dL (8.6-10.3); Carbon Dioxide 18 mEq/L (23-29); Chloride 97 mEq/L (98-107); Glucose 126 mg/dL (70-105); Osmolality,Calculated 271 (280-300); Potassium 5.3 mEq/L (3.5-5.1); Sodium 124 mEq/L (136-145); eGFR For African Americans 38 (> 60); eGFR For Non-African Americans 31 (> 60)
[2021-10-04 01:02] LABS: Troponin I < 0.03 ng/mL (< 0.04)
[2021-10-04] MEDS ORDERED: Naloxone 0.4 MG/ML INJ IVP PRN (03:10)
[2021-10-04 04:35] LABS: Appearance of Pleural Fl Hazy (Clear)
[2021-10-04 04:41] LABS: RBC,Pleural Fluid < 2000 RBC/mcL
[2021-10-04 04:48] LABS: Glucose,Pleural Fluid 175 mg/dL (No Ref Range); LDH,Pleural Fluid < 25 Units/L (No Ref Range); Total Protein,Pleural Fluid < 2.0 g/dL
[2021-10-04 05:21] LABS: Basophils,Pleural Fluid 0 %; Eosinophils,Pleural Fluid 0 %
[2021-10-04 06:39] LABS: INR 1.3; Prothrombin Time 14.3 Seconds (9.4-12.1)
[2021-10-04 06:50] LABS: Calcium 8.6 mg/dL (8.6-10.3); Potassium 5.7 mEq/L (3.5-5.1)
[2021-10-04 06:52] LABS: Alanine Aminotransferase 19 Units/L (7-52); Albumin 3.4 g/dL (3.5-5.7); Albumin/Globulin Ratio 1.4 (1.1-2.2); Alkaline Phosphatase 101 Units/L (34-104); Aspartate Amino Transferase 39 Units/L (13-39); Bilirubin,Direct 0.3 mg/dL (0.0-0.2); Bilirubin,Indirect 0.9 mg/dL (0.0-1.0); Bilirubin,Total 1.2 mg/dL (0.3-1.0); Globulin 2.4 g/dL (2.4-3.5); Total Protein 5.8 g/dL (6.4-8.9); Troponin I < 0.03 ng/mL (< 0.04)
[2021-10-04] MEDS ORDERED: D5% in Water 1,000 ML IVC PRN (11:47)
[2021-10-04] MEDS ORDERED: *HR* Dextrose 50 % in Water (Syg) 50 ML SYRINGE IVP PRN (11:47)
[2021-10-04] MEDS ORDERED: Dextrose Gel 15 GM/37.5 ML TUBE PO PRN ×2 (11:47)
[2021-10-04] MEDS: *HR* OxyCODONE Immed Rel 5 MG TABLET PO PRN (12:05)
[2021-10-04 12:37] LABS: Calcium 8.9 mg/dL (8.6-10.3); Potassium 5.7 mEq/L (3.5-5.1)
[2021-10-04] MEDS: Insulin LISPRO 300 UNITS/3 ML VIAL SUBQ SCH (18:03)
[2021-10-04] MEDS: Ondansetron 4 MG/2 ML VIAL IVP PRN (21:28)
[2021-10-04] MEDS ORDERED: *HR* Metoprolol 5 MG/5 ML VIAL IVP ONE (22:12)
[2021-10-04] MEDS ORDERED: Morphine Sulfate 2 MG/ML SYRINGE IVP ONE (22:53)
[2021-10-04 23:16] LABS: Hematocrit 27.1 % (35.3-44.9); Hemoglobin 9.2 g/dL (11.5-15.4)
[2021-10-04] MEDS ORDERED: Furosemide 20 MG/2 ML VIAL IVP ONE (23:21)
[2021-10-04] MEDS ORDERED: Albumin 25% 25gram/100mL 25 GM/100 ML IV.SOLN IVPB ONE (23:22)
[2021-10-04 23:38] LABS: Albumin 3.3 g/dL (3.5-5.7); Calcium 8.7 mg/dL (8.6-10.3); Potassium 5.4 mEq/L (3.5-5.1)
[2021-10-05] MEDS ORDERED: Morphine Sulfate 2 MG/ML SYRINGE IVP ONE ×2 (01:54→07:00)
[2021-10-05 02:14] LABS: Potassium 5.5 mEq/L (3.5-5.1)
[2021-10-05] MEDS ORDERED: Acetaminophen IV 1,000 MG/100 ML BAG IVPB ONE (04:44)
[2021-10-05] MEDS: Insulin LISPRO 300 UNITS/3 ML VIAL SUBQ SCH ×3 (07:48→16:29)
[2021-10-05] MEDS ORDERED: Melatonin 3 MG TABLET PO PRN (08:32)
[2021-10-05] MEDS: Cholecalciferol (D-3) 1,000 UNIT (25MCG) TABLET PO SCH (09:49)
[2021-10-05] MEDS: Magnesium Oxide 400 MG TABLET PO SCH (09:49)
[2021-10-05] MEDS: Primidone 50 MG TABLET PO SCH ×3 (09:49→21:21)
[2021-10-05] MEDS: Furosemide 20 MG TABLET PO SCH (09:49)
[2021-10-05] MEDS ORDERED: SODIUM ZIRCONIUM CYCLOSILICATE 5 GM POWD.PACK PO ONE (09:52)
[2021-10-05] MEDS: Gabapentin 300 MG CAPSULE PO SCH ×3 (10:04→21:20)
[2021-10-05] MEDS: Fluticasone Propionate Nasal 50 MCG/SPRAY BOTTLE NS SCH (10:06)
[2021-10-05] MEDS: *HR* OxyCODONE Immed Rel 5 MG TABLET PO PRN (11:51)
[2021-10-05] MEDS ORDERED: *HR* HYDROmorphone (PF) 1 MG/ML SYRINGE IVP ONE (12:03)
[2021-10-05] MEDS: Albumin 25% 25gram/100mL 25 GM/100 ML IV.SOLN IVPB SCH (15:47)
[2021-10-06] MEDS: Albumin 25% 25gram/100mL 25 GM/100 ML IV.SOLN IVPB SCH ×4 (01:49→23:52)
[2021-10-06 02:12] LABS: Basophils % 0.7 %; Hemoglobin 8.2 g/dL (11.5-15.4)
[2021-10-06 02:14] LABS: Eosinophils # 0.1 K/mcL (0.0-0.6); Eosinophils % 3.5 %; Hematocrit 25.1 % (35.3-44.9); Immature Platelets 3.8 % (1.1-6.1); Lymphocytes # 0.6 K/mcL (0.6-4.6); Lymphocytes % 20.1 %; Mean Corpuscular HGB Conc 32.7 g/dL (31.6-35.5); Mean Corpuscular Hemoglobin 30.7 pg (28.0-33.3); Mean Platelet Volume 10.7 fL (9.4-12.4); Monocytes # 0.4 K/mcL (0.0-1.3); Monocytes % 14.1 %; Neutrophils # 1.7 K/mcL (1.6-8.9); Red Blood Count 2.67 M/mcL (3.82-4.97); Red Cell Distribution Width 15.9 % (11.5-14.5); Segmented Neutrophils % 61.6 %; White Blood Count 2.8 K/mcL (4.3-11.1)
[2021-10-06 02:20] LABS: Platelet Count 46 K/mcL (140-400)
[2021-10-06 02:30] LABS: Calcium 8.9 mg/dL (8.6-10.3); Potassium 5.4 mEq/L (3.5-5.1)
[2021-10-06] MEDS: *HR* OxyCODONE Immed Rel 5 MG TABLET PO PRN ×3 (06:13→23:51)
[2021-10-06] MEDS: Insulin LISPRO 300 UNITS/3 ML VIAL SUBQ SCH ×3 (09:10→16:29)
[2021-10-06] MEDS: Furosemide 20 MG TABLET PO SCH (09:11)
[2021-10-06] MEDS: Cholecalciferol (D-3) 1,000 UNIT (25MCG) TABLET PO SCH (09:11)
[2021-10-06] MEDS: Gabapentin 300 MG CAPSULE PO SCH ×3 (09:11→20:37)
[2021-10-06] MEDS: Primidone 50 MG TABLET PO SCH ×3 (09:11→20:37)
[2021-10-06] MEDS: Magnesium Oxide 400 MG TABLET PO SCH (09:11)
[2021-10-06] MEDS: Fluticasone Propionate Nasal 50 MCG/SPRAY BOTTLE NS SCH (09:11)
[2021-10-06] MEDS ORDERED: SODIUM ZIRCONIUM CYCLOSILICATE 5 GM POWD.PACK PO ONE ×2 (09:23→18:00)
[2021-10-07] MEDS: *HR* HYDROmorphone (PF) 1 MG/ML SYRINGE IVP PRN ×2 (00:46→23:32)
[2021-10-07 03:26] LABS: Basophils % 0.6 %; Immature Granulocytes % 0.6 % (0-4); Mean Corpuscular Volume 94.2 fL (83.0-100.0); Mean Platelet Volume 10.2 fL (9.4-12.4)
[2021-10-07 03:28] LABS: Eosinophils % 2.4 %; Hematocrit 21.2 % (35.3-44.9); Hemoglobin 6.9 g/dL (11.5-15.4); Immature Platelets 4.5 % (1.1-6.1); Lymphocytes # 0.5 K/mcL (0.6-4.6); Lymphocytes % 28.6 %; Mean Corpuscular HGB Conc 32.5 g/dL (31.6-35.5); Mean Corpuscular Hemoglobin 30.7 pg (28.0-33.3); Monocytes # 0.2 K/mcL (0.0-1.3); Monocytes % 13.1 %; Neutrophils # 0.9 K/mcL (1.6-8.9); Red Blood Count 2.25 M/mcL (3.82-4.97); Red Cell Distribution Width 15.8 % (11.5-14.5); Segmented Neutrophils % 54.7 %; White Blood Count 1.7 K/mcL (4.3-11.1)
[2021-10-07 03:32] LABS: Platelet Count 38 K/mcL (140-400)
[2021-10-07 03:38] LABS: Calcium 8.8 mg/dL (8.6-10.3); Potassium 4.4 mEq/L (3.5-5.1)
[2021-10-07 04:10] LABS: Platelet Estimate Decreased (Normal)
[2021-10-07] MEDS: *HR* OxyCODONE Immed Rel 5 MG TABLET PO PRN ×3 (06:02→18:32)
[2021-10-07] MEDS: Ondansetron 4 MG/2 ML VIAL IVP PRN (06:43)
[2021-10-07] MEDS: Insulin LISPRO 300 UNITS/3 ML VIAL SUBQ SCH ×3 (08:22→16:02)
[2021-10-07] MEDS: Albumin 25% 25gram/100mL 25 GM/100 ML IV.SOLN IVPB SCH ×3 (08:22→23:32)
[2021-10-07] MEDS: Furosemide 20 MG TABLET PO SCH (08:23)
[2021-10-07] MEDS: Cholecalciferol (D-3) 1,000 UNIT (25MCG) TABLET PO SCH (08:23)
[2021-10-07] MEDS: Primidone 50 MG TABLET PO SCH ×3 (08:23→19:22)
[2021-10-07] MEDS: Fluticasone Propionate Nasal 50 MCG/SPRAY BOTTLE NS SCH (08:23)
[2021-10-07] MEDS: Gabapentin 300 MG CAPSULE PO SCH ×3 (08:23→19:22)
[2021-10-07] MEDS: Magnesium Oxide 400 MG TABLET PO SCH (08:24)
[2021-10-07] MEDS ORDERED: 0.9 % Sodium Chloride 250 ML ONE (13:09)
[2021-10-08 03:21] LABS: Basophils % 0.4 %; Mean Platelet Volume 10.9 fL (9.4-12.4); Red Blood Count 2.74 M/mcL (3.82-4.97); Red Cell Distribution Width 17.1 % (11.5-14.5)
[2021-10-08 03:23] LABS: Eosinophils # 0.1 K/mcL (0.0-0.6); Eosinophils % 2.5 %; Hematocrit 25.7 % (35.3-44.9); Hemoglobin 8.3 g/dL (11.5-15.4); Immature Platelets 6.3 % (1.1-6.1); Lymphocytes # 0.5 K/mcL (0.6-4.6); Lymphocytes % 18.9 %; Mean Corpuscular HGB Conc 32.3 g/dL (31.6-35.5); Mean Corpuscular Hemoglobin 30.3 pg (28.0-33.3); Mean Corpuscular Volume 93.8 fL (83.0-100.0); Monocytes # 0.3 K/mcL (0.0-1.3); Monocytes % 11.8 %; Neutrophils # 1.6 K/mcL (1.6-8.9); Nucleated Red Blood Cells 0.8 /100 WBC (0); Segmented Neutrophils % 66.4 %; White Blood Count 2.4 K/mcL (4.3-11.1)
[2021-10-08 03:24] LABS: Platelet Count 43 K/mcL (140-400)
[2021-10-08 03:38] LABS: Calcium 9.4 mg/dL (8.6-10.3); Potassium 4.4 mEq/L (3.5-5.1)
[2021-10-08] MEDS: *HR* OxyCODONE Immed Rel 5 MG TABLET PO PRN ×2 (03:42→10:02)
[2021-10-08] MEDS: Fluticasone Propionate Nasal 50 MCG/SPRAY BOTTLE NS SCH (08:11)
[2021-10-08] MEDS: Cholecalciferol (D-3) 1,000 UNIT (25MCG) TABLET PO SCH (08:11)
[2021-10-08] MEDS: Primidone 50 MG TABLET PO SCH ×3 (08:11→21:03)
[2021-10-08] MEDS: Insulin LISPRO 300 UNITS/3 ML VIAL SUBQ SCH ×3 (08:11→16:26)
[2021-10-08] MEDS: Magnesium Oxide 400 MG TABLET PO SCH (08:11)
[2021-10-08] MEDS: Albumin 25% 25gram/100mL 25 GM/100 ML IV.SOLN IVPB SCH ×3 (08:11→23:19)
[2021-10-08] MEDS: Gabapentin 300 MG CAPSULE PO SCH ×3 (08:12→21:03)
[2021-10-08] MEDS: Furosemide 20 MG TABLET PO SCH (08:12)
[2021-10-08] MEDS: Ondansetron 4 MG/2 ML VIAL IVP PRN (10:02)
[2021-10-08] MEDS ORDERED: Morphine Sulfate 2 MG/ML SYRINGE IVP PRN (15:31)
[2021-10-08] MEDS: Haloperidol Lactate 5 MG/ML VIAL IVP PRN (15:43)
[2021-10-08] MEDS: *HR* HYDROmorphone (PF) 1 MG/ML SYRINGE IVP PRN (15:44)
[2021-10-08] MEDS ORDERED: cefTRIAXone 2,000 MG in Water for inj. (sterile) 20 ML IVP ONE (17:46)
[2021-10-08] MEDS ORDERED: Acetaminophen 325 MG TABLET PO PRN (17:53)
[2021-10-08] MEDS: Azithromycin 500 MG in 0.9 % Sodium Chloride 250 ML IVPB SCH (18:38)
[2021-10-08 19:48] LABS: Adenovirus Not Detected (Not Detect); Bordetella Pertussis Not Detected (Not Detect); Chlamydophila pneumoniae Not Detected (Not Detect); Coronavirus 229E Not Detected (Not Detect); Coronavirus HKU1 Not Detected (Not Detect); Coronavirus NL63 Not Detected (Not Detect); Coronavirus OC43 Not Detected (Not Detect); Human Metapneumovirus Not Detected (Not Detect); Human Rhinovirus/Enterovirus Not Detected (Not Detect); Influenza A Subtype 2009 H1 Not Detected (Not Detect); Influenza B Not Detected (Not Detect); Mycoplasma pneumoniae Not Detected (Not Detect); Parainfluenza Virus 1 Not Detected (Not Detect); Parainfluenza Virus 2 Not Detected (Not Detect); Parainfluenza Virus 3 Not Detected (Not Detect); Parainfluenza Virus 4 Not Detected (Not Detect); Respiratory Syncytial Virus Not Detected (Not Detect); SARS-CoV-2 Not Detected (Not Detect)
[2021-10-08 23:41] LABS: Bacteria,Urine Few per hpf (None-Few); Bilirubin,Urine Negative (Negative); Blood,Urine Small (Negative); Clarity,Urine Turbid (Clear); Color,Urine Yellow (Yellow); Glucose,Urine (UA) Normal (Normal); Hyaline Casts,Urine Many per lpf (None Seen); Ketones,Urine Negative (Negative); Leukocyte Esterase,Urine Large (Negative); Mucus,Urine Few per lpf (None-Few); Nitrite,Urine Negative (Negative); PH,Urine 5.5 pH Units (5.0-8.0); Protein,Urine 30 mg/dL (Neg-Trace); Specific Gravity,Urine 1.017 (1.010-1.025); Squamous Epithelial Cell,Urine Few per hpf (None-Few); Urobilinogen,Urine Normal (Normal); WBC,Urine TNTC per hpf (0-3)
[2021-10-09] MEDS: *HR* HYDROmorphone (PF) 1 MG/ML SYRINGE IVP PRN ×2 (00:31→09:15)
[2021-10-09] MEDS: Haloperidol Lactate 5 MG/ML VIAL IVP PRN (00:32)
[2021-10-09 01:50] LABS: Basophils % 0.4 %; Eosinophils % 1.3 %; Hematocrit 24.3 % (35.3-44.9); Hemoglobin 7.6 g/dL (11.5-15.4); Lymphocytes # 0.4 K/mcL (0.6-4.6); Lymphocytes % 17.3 %; Mean Corpuscular HGB Conc 31.3 g/dL (31.6-35.5); Mean Corpuscular Hemoglobin 29.5 pg (28.0-33.3); Mean Corpuscular Volume 94.2 fL (83.0-100.0); Mean Platelet Volume 10.9 fL (9.4-12.4); Monocytes # 0.3 K/mcL (0.0-1.3); Monocytes % 12.4 %; Red Blood Count 2.58 M/mcL (3.82-4.97); Segmented Neutrophils % 68.6 %; White Blood Count 2.3 K/mcL (4.3-11.1)
[2021-10-09 01:51] LABS: Neutrophils # 1.6 K/mcL (1.6-8.9); Platelet Count 38 K/mcL (140-400)
[2021-10-09 02:04] LABS: Calcium 9.3 mg/dL (8.6-10.3); Potassium 4.5 mEq/L (3.5-5.1)
[2021-10-09] MEDS ORDERED: 0.9 % Sodium Chloride 250 ML ONE (05:00)
[2021-10-09] MEDS: Insulin LISPRO 300 UNITS/3 ML VIAL SUBQ SCH ×3 (07:50→17:24)
[2021-10-09] MEDS: Albumin 25% 25gram/100mL 25 GM/100 ML IV.SOLN IVPB SCH ×3 (07:51→23:45)
[2021-10-09] MEDS: cefTRIAXone 1,000 MG in Water for inj. (sterile) 10 ML IVP SCH (07:51)
[2021-10-09] MEDS: Fluticasone Propionate Nasal 50 MCG/SPRAY BOTTLE NS SCH (07:59)
[2021-10-09] MEDS: Magnesium Oxide 400 MG TABLET PO SCH (08:05)
[2021-10-09] MEDS: Primidone 50 MG TABLET PO SCH ×3 (08:05→19:30)
[2021-10-09] MEDS: Furosemide 20 MG TABLET PO SCH (08:05)
[2021-10-09] MEDS: Gabapentin 300 MG CAPSULE PO SCH ×3 (08:06→19:30)
[2021-10-09] MEDS: Cholecalciferol (D-3) 1,000 UNIT (25MCG) TABLET PO SCH (08:06)
[2021-10-09] MEDS ORDERED: Scopolamine Patch 1.5 MG PATCH.TD72 TD SCH (16:15)
[2021-10-09] MEDS: Atropine 1% Opth Drops 100 DROP/5 ML BOTTLE SL PRN (17:07)
[2021-10-09] MEDS: Azithromycin 500 MG in 0.9 % Sodium Chloride 250 ML IVPB SCH (17:07)
[2021-10-10] MEDS: Atropine 1% Opth Drops 100 DROP/5 ML BOTTLE SL PRN ×3 (00:04→21:24)
[2021-10-10] MEDS: Furosemide 20 MG TABLET PO SCH (07:10)
[2021-10-10] MEDS: Magnesium Oxide 400 MG TABLET PO SCH (07:10)
[2021-10-10] MEDS: Fluticasone Propionate Nasal 50 MCG/SPRAY BOTTLE NS SCH (07:10)
[2021-10-10] MEDS: Cholecalciferol (D-3) 1,000 UNIT (25MCG) TABLET PO SCH (07:11)
[2021-10-10] MEDS: Gabapentin 300 MG CAPSULE PO SCH (07:11)
[2021-10-10] MEDS: Primidone 50 MG TABLET PO SCH ×3 (07:11→19:46)
[2021-10-10] MEDS: Insulin LISPRO 300 UNITS/3 ML VIAL SUBQ SCH (07:15)
[2021-10-10] MEDS: *HR* HYDROmorphone (PF) 1 MG/ML SYRINGE IVP PRN ×8 (07:28→22:38)
[2021-10-10] MEDS: cefTRIAXone 1,000 MG in Water for inj. (sterile) 10 ML IVP SCH (09:00)
[2021-10-10] MEDS: Albumin 25% 25gram/100mL 25 GM/100 ML IV.SOLN IVPB SCH (09:00)
[2021-10-10] MEDS: Haloperidol Lactate 5 MG/ML VIAL IVP PRN ×4 (10:32→21:24)
[2021-10-11] MEDS: *HR* HYDROmorphone (PF) 1 MG/ML SYRINGE IVP PRN ×10 (01:34→22:17)
[2021-10-11] MEDS: Haloperidol Lactate 5 MG/ML VIAL IVP PRN (01:38)
[2021-10-11] MEDS: Atropine 1% Opth Drops 100 DROP/5 ML BOTTLE SL PRN (05:08)
[2021-10-11] MEDS: Fluticasone Propionate Nasal 50 MCG/SPRAY BOTTLE NS SCH (07:54)
[2021-10-11] MEDS: Primidone 50 MG TABLET PO SCH ×3 (07:54→20:06)
[2021-10-11] MEDS ORDERED: Haloperidol Lactate 5 MG/ML VIAL IVP PRN (11:41)
[2021-10-12] MEDS: *HR* HYDROmorphone (PF) 1 MG/ML SYRINGE IVP PRN (01:33)
[2021-10-12 06:53] VITALS: BP 134/69; PULSE 81; TEMP 98.4; O2SAT 96
[2021-10-12] MEDS: Primidone 50 MG TABLET PO SCH (08:13)
== END 2021-10-12 16:12 | disposition hospice, home (50) | DRG 186 ==
LOC: EMEROOARM 23:48 → 3BNU 23:48 → SUATTDRO 10-04 03:03 → 3BNU 10-04 04:36
PROVIDERS: ADMIT Internal Medicine; ATTEND Internal Medicine